=== PATIENT | female | born 1980 | race Caucasian/White ===

== ENCOUNTER 2016-04-20 21:54 | Emergency (ER) | payer MEDICARE, OTHER ==
[2016-04-20 22:19] VITALS: RESP 20
--- NOTE | 2016-04-20 22:30 | ED ---
General Adult HPI - General Chief complaint: Back Pain/Injury Stated complaint: Rib Injury Time Seen by Provider: 04/20/16 21:59 Source: patient, RN notes reviewed Mode of arrival: ambulatory Limitations: physical limitation - History of Present Illness Initial comments: Patient 35-year-old female who presents emergency room today with a field technical assistant, the chief complaint of abnormal appearance of the left side of the ribs. [employer] states that she noticed that during a shower earlier today she noticed that the left rib seem to be protruding farther out. States otherwise patient is at baseline. Patient nonverbal and history provided by field technical assistant at bedside. Denies any other symptoms. Denies any cough congestion. Denies any recent fevers. Denies any nausea vomiting. Review of Systems ROS Statement: Those systems with pertinent positive or pertinent negative responses have been documented in the HPI. ROS Other: All systems not noted in ROS Statement are negative. Past Medical History Additional Past Medical History / Comment(s): celebral palsy - mental retardation- unreposnsive- has feeding tube and trach tube Past Psychological History: No Psychological Hx Reported General Exam - General Exam Comments Initial Comments: General: The patient is in no distress, and does not appear acutely ill. Eye: Pupils are equal, round and reactive to light, extra-ocular movements are intact. No nystagmus. There is normal conjunctiva bilaterally. No signs of icterus. Ears, nose, mouth and throat: There are moist mucous membranes and no oral lesions. Neck: The neck is supple. Cardiovascular: There is a regular rate and rhythm. No murmur, rub or gallop is appreciated. Respiratory: Lungs are clear to auscultation, respirations are non-labored, breath sounds are equal. No wheezes, stridor, rales, or rhonchi. Gastrointestinal: Soft, non-distended, non-tender abdomen without masses or organomegaly noted. There is no rebound or guarding present. No CVA tenderness. Bowel sounds are unremarkable. Musculoskeletal: Normal ROM, no tenderness. Strength 5/5. Sensation intact. Pulses equal bilaterally 2+. Neurological: A&O x 3. CN II-XII intact, There are no obvious motor or sensory deficits. Coordination appears grossly intact. Speech is normal. Skin: Skin is warm and dry and no rashes or lesions are noted. Limitations: physical limitation Course Vital Signs 04/20/16 22:11 Temperature 97.8 F Pulse Rate 83 Respiratory 20 Rate Blood Pressure 114/64 O2 Sat by Pulse 98 Oximetry Medical Decision Making - Medical Decision Making Patient reexamined at this time has no signs acute distress. Vitals are stable. X-ray reviewed are unremarkable. There is no bruising or swelling locally to the area. There is no history of a injury or trauma to the area. Patient does have previous surgeries and no hip on the left side that was removed. Bony structures are somewhat irregular on x-ray but no evidence for anything acute. Results were discussed with the patient's field technical assistant. Patient shows no signs of distress. No signs of pain on palpation. Will be discharged home advised following up returning for any other concerns. Disposition Clinical Impression: No problem, feared complaint unfounded Disposition: HOME SELF-CARE Condition: Good Additional Instructions: Please follow the family doctor over the next 2 days. Please continue the emergency room for any other concerns or complications. Time of Disposition: 23:14
--- NOTE | 2016-04-20 23:08 | XR ---
EXAMINATION TYPE: XR chest 2V DATE OF EXAM: 04/20/2016 10:45 PM COMPARISON: 08/22/2009 HISTORY: Injury. Chest pain. TECHNIQUE: Frontal and lateral views of the chest are obtained. FINDINGS: There is a poor inspiration. Heart and mediastinum are normal. Tracheostomy tube is noted. There are posterior paraspinal rods stabilizing the thoracic and lumbar spine. There are no hilar ma sses. IMPRESSION: No active cardiopulmonary disease. Inspiration is improved compared to old exam.
[2016-04-21 00:32] VITALS: BP 114/72; PULSE 78; TEMP 98.2
== END 2016-04-21 00:42 | disposition home or self-care (01) ==
LOC: EC 21:54
DX: Z71.1 Person with feared health complaint in whom no diagnosis is made (principal); G80.9 Cerebral palsy, unspecified; F79 Unspecified intellectual disabilities; Z93.1 Gastrostomy status
CPT/HCPCS: 71020; 99283

== ENCOUNTER 2016-06-11 11:07 | Day surgery (SDC) | payer MEDICARE, OTHER ==
[2016-06-06 13:36] VITALS: BMI 18.8
[~2016-06-11 11:07] MED LIST: LIDOCAINE 1% 20 ML VIAL (10MG/ML) FOR IV START INTRADERMA PRN
[2016-06-11 13:04] VITALS: TEMP 98
[2016-06-11] MEDS: LACTATED RINGERS 1,000 ML IV SCH ×2 (13:14→13:16)
[2016-06-11] MEDS ORDERED: PROPOFOL 10 MG/ML 20 ML VIAL IV ONE (13:18)
[2016-06-11] MEDS ORDERED: IV FLUID CONTINUATION 1,000 ML IV ONE (13:59)
[2016-06-11 14:04] VITALS: RESP 18
--- NOTE | 2016-06-11 14:09 | P.PCN ---
Date of Procedure: 06/11/16 Procedure(s) Performed: Procedure: Esophagogastroduodenoscopy and replacement of gastrostomy feeding tube. Preoperative diagnosis: History of cerebral palsy with tracheostomy and gastrostomy feeding tube placement in the past for enteral nutritional support with feeding tube malfunction. Postoperative diagnosis: Replacement of the feeding tube was accomplished using the Bard button replacement gastrostomy device size 18-Guyanese and 1.7 cm length. Preparation and sedation: Was provided by anesthesia. Brief clinical history: The patient is a 36-year-old female with history of seizure disorder and cerebral palsy who has been requiring enteral nutritional support for several years. Her current gastrostomy feeding tube was last changed around 5 years ago. The patient also has a tracheostomy as well. The patient was referred for feeding tube malfunction to replace her existing tube. Procedure: With the patient in the supine position and after informed consent and the adequate sedation, I was able to deflate the balloon on the current gastrostomy tube and removed the existing tube intact. The balloon was filled with 7 mL of clear fluid and the size of the tube was 24-Guyanese. We were not able to secure the same feeding tube kind that she had, and instead I used the Bard button replacement gastrostomy device 18-Guyanese 1.7 cm length and I passed it using the obturator and generous lubrication into the existing tract. Because of the different than the Kind of tube and the length I proceeded to perform an EGD to ascertain that the smaller and perhaps shorter length tube is in the optimal position. I therefore proceeded to pass the Olympus-GIF 160 video upper endoscope through the cricopharyngeus down the esophagus and into the stomach. I passed it through the pylorus into the duodenum and confirmed the absence of any significant pathology. The feeding tube appeared in place and was abutting the inside wall of the stomach as expected. The patient tolerated the procedure well. Plan: I discussed in detail these findings with the caregiver and guardian. Will allow resuming the feeding using the new feeding tube and monitor closely for any leakage or infection. If there are any problems with with the function of the tube in the future we will consider replacing with a balloon replacement tube with different dimensions.
[2016-06-11 14:20] VITALS: BP 97/66; PULSE 60
== END 2016-06-11 14:46 | disposition home health service (06) ==
LOC: ORWHC2ENDO 11:07
DX: Z43.1 Encounter for attention to gastrostomy (principal); G80.8 Other cerebral palsy; G40.909 Epilepsy, unspecified, not intractable, without status epilepticus; F79 Unspecified intellectual disabilities; Z79.51 Long term (current) use of inhaled steroids; Z79.899 Other long term (current) drug therapy
CPT/HCPCS: 43246; J2704

== ENCOUNTER 2016-11-30 11:17 | Inpatient (IN) | payer MEDICARE, OTHER ==
[2016-11-30] MEDS ORDERED: IPRATROPIUM-ALBUTEROL 3 ML NEB INHALATION STA ×2 (12:01→16:29)
[2016-11-30] MEDS ORDERED: PIPERACILLIN-TAZOBACTAM 3.375 GM in DEXTROSE/WATER 1 50ML.BAG IVPB STA (12:01)
[2016-11-30] MEDS ORDERED: methylPREDNISolone SOD SUCCI 125 MG/2 ML VIAL IV STA (12:01)
[2016-11-30] MEDS ORDERED: SODIUM CHLORIDE 0.9% 1,000 ML IV STA (12:01)
--- NOTE | 2016-11-30 13:45 | ED ---
SOB HPI - General Chief Complaint: Shortness of Breath Stated Complaint: pneumonia Time Seen by Provider: 11/30/16 11:53 Source: EMS, Caregiver Mode of arrival: EMS Limitations: physical limitation - History of Present Illness Initial Comments: This 36-year-old debilitated white female presents with a complaint of some shortness of breath. She is non-communicative and therefore all history is obtained per her guardian. Her guardian relates that she normally receives feedings through her PEG tube over a period of time. They apparently just recently started giving her boluses of her feeding tube mixture. Today at approximately 10 AM she started coughing and having the feeding mixture leak out of her tracheostomy site. She seems to be having some slight decrease in her normal mentation and also has had some difficulty in breathing and increased cough. There has not been any known fever. Symptoms were relatively sudden in onset. This occurred while she was at her day program today. No other complaints or modifying factors. - Related Data Home Medications Medication Instructions Recorded Confirmed Albuterol Nebulized [Ventolin 2.5 mg INHALATION RT-QID 06/06/16 11/30/16 Nebulized] Baclofen [Lioresal] 20 mg PEG/G-TUBE TID 06/06/16 11/30/16 Diazepam 2 mg PEG/G-TUBE BID 06/06/16 11/30/16 Diazepam [Diastat] 20 mg RECTAL Q5M PRN 06/06/16 11/30/16 Montelukast Sodium [Singulair] 10 mg PEG/G-TUBE QAM 06/06/16 11/30/16 carBAMazepine [TEGretol Susp] 400 mg PEG/G-TUBE TID 06/06/16 11/30/16 levETIRAcetam 1,000 mg PEG/G-TUBE BID 06/06/16 11/30/16 Bisacodyl [Dulcolax] 10 mg RECTAL DAILY PRN 11/30/16 11/30/16 Budesonide [Pulmicort] 0.5 mg INHALATION RT-BID 11/30/16 11/30/16 Chlorhexidine Gluconate [Peridex] 1 applic MUCOUS MEM BID 11/30/16 11/30/16 Doxycycline Hyclate [Vibramycin] 100 mg PO BID 11/30/16 11/30/16 Fibersource Hn Liquid 1 can PEG/G-TUBE TID 11/30/16 11/30/16 Mometasone Furoate [Nasonex Nasal 1 spray EA NOSTRIL DAILY 11/30/16 11/30/16 [place]] Naproxen [Naprosyn] 375 mg PEG/G-TUBE DAILY 11/30/16 11/30/16 Nystatin 100,000 Unit/gm Powd 1 applic TOPICAL BID 11/30/16 11/30/16 [Mycostatin Powder] Polyethylene Glycol 3350 [Miralax] 17 gm PEG/G-TUBE DAILY PRN 11/30/16 11/30/16 Triamcinolone 0.1% Lotion [Kenalog 1 applic TOPICAL BID 11/30/16 11/30/16 0.1% Lotion] Allergies Allergy/AdvReac Type Severity Reaction Status Date / Time No Known Allergies Allergy Verified 11/30/16 11:48 Review of Systems ROS Statement: Those systems with pertinent positive or pertinent negative responses have been documented in the HPI. ROS Other: All systems not noted in ROS Statement are negative. Past Medical History Past Medical History: Asthma, Musculoskeletal Disorder, Seizure Disorder Additional Past Medical History / Comment(s): celebral palsy , mental retardation- non verbal, has feeding tube and trach tube, no recorded of last seizure at custodial. quadraplegic, non ambulatory in wheelchair, transfers with lift -no wt bearing. hx stool impactions, incontinent of urine and stool- wears depends History of Any Multi-Drug Resistant Organisms: MRSA Date of last positivie culture/infection: 05/25/16 MDRO Source:: Abdomen Past Surgical History: Orthopedic Surgery Additional Past Surgical History / Comment(s): EGD/ peg tube, Left hip bone removed, trachestomy Past Anesthesia/Blood Transfusion Reactions: No Reported Reaction Past Psychological History: Unable to Obtain Smoking Status: Never smoker - Past Family History Mother Family Medical History: Unable to Obtain Additional Family Medical History / Comment(s): no hx at custodial General Exam - General Exam Comments Initial Comments: GENERAL: The patient is well nourished and well hydrated. VITAL SIGNS: Heart rate, blood pressure, respiratory rate reviewed as recorded in nurse's notes. EYES: Pupils are round and reactive. Extraocular movements are intact. No conjunctival / lid redness or swelling. ENT: No external evidence of injury, swelling, or ecchymosis. Mucous membranes are moist. NECK: Nontender. No swelling or evidence of injury. No subcutaneous emphysema. The patient has a tracheostomy in place. HEART: Regular rate and rhythm. Good peripheral pulses. LUNGS/CHEST: Rhonchi and wheezing is noted to the bilateral lungs. No ecchymosis, subcutaneous emphysema, or tenderness. ABDOMEN: Abdomen soft without tenderness. No palpable masses or organomegaly. No peritoneal signs. No abdominal wall swelling or ecchymosis. A PEG tube is in place. EXTREMITIES: Contractures noted to extremities. NEUROLOGIC: The patient is chronically debilitated. She is alert at times but sleeping at times as well. SKIN: No abrasions or ecchymosis is noted. No induration or masses noted. PSYCHIATRIC: Patient is noncommunicative. Limitations: physical limitation Course Vital Signs 11/30/16 11/30/16 11/30/16 11:20 11:39 12:15 Temperature 98.7 F Pulse Rate 79 80 Respiratory 18 20 Rate Blood Pressure 99/62 O2 Sat by Pulse 93 L Oximetry 11/30/16 12:42 Temperature Pulse Rate 84 Respiratory Rate Blood Pressure O2 Sat by Pulse Oximetry Medical Decision Making - Medical Decision Making The patient is seen and examined. All diagnostics were reviewed. The nursing staff was unable to obtain any IV access after many attempts. The patient apparently was at [facility] 2 weeks ago and the caregiver relates that they were unable to obtain IV access. They also were unable to get a central line placed. A consult is placed to interventional radiology for PICC line placement. The chest x-ray does show evidence of pneumonia bilaterally. Is felt as though this is likely an aspiration pneumonia. She will be admitted to the hospital for further treatment. Old records are reviewed. Laboratory was reviewed and overall is fairly unremarkable. Delay in receiving antibiotics has occurred due to lack of IV access. Case was discussed with Dr. Zepeda and he is agreeable to admission. - Lab Data Result diagrams: 11/30/16 14:00 11/30/16 14:00 Lab Results 11/30/16 11/30/16 11/30/16 Range/Units 14:00 14:00 14:00 WBC 8.3 (3.8-10.6) k/uL RBC 4.33 (3.80-5.40) m/uL Hgb 12.2 (11.4-16.0) gm/dL Hct 37.2 (34.0-46.0) % MCV 85.8 (80.0-100.0) fL MCH 28.1 (25.0-35.0) pg MCHC 32.7 (31.0-37.0) g/dL RDW 16.3 H (11.5-15.5) % Plt Count 247 (150-450) k/uL Neutrophils % 84 % Lymphocytes % 9 % Monocytes % 5 % Eosinophils % 1 % Basophils % 0 % Neutrophils # 6.9 (1.3-7.7) k/uL Lymphocytes # 0.7 L (1.0-4.8) k/uL Monocytes # 0.4 (0-1.0) k/uL Eosinophils # 0.1 (0-0.7) k/uL Basophils # 0.0 (0-0.2) k/uL Anisocytosis Slight PT 10.5 (9.0-12.0) sec INR 1.0 (<1.2) APTT 25.1 (22.0-30.0) sec Sodium 132 L (137-145) mmol/L Potassium 3.8 (3.5-5.1) mmol/L Chloride 98 (98-107) mmol/L Carbon Dioxide 22 (22-30) mmol/L Anion Gap 12 mmol/L BUN 7 (7-17) mg/dL Creatinine 0.26 L (0.52-1.04) mg/dL Est GFR (MDRD) Af Amer >60 (>60 ml/min/1.73 sqM) Est GFR (MDRD) Non-Af >60 (>60 ml/min/1.73 sqM) Glucose 106 H (74-99) mg/dL Calcium 9.1 (8.4-10.2) mg/dL Magnesium 2.0 (1.6-2.3) mg/dL Total Bilirubin 0.3 (0.2-1.3) mg/dL AST 22 (14-36) U/L ALT 50 (9-52) U/L Alkaline Phosphatase 100 (38-126) U/L Total Creatine Kinase (30-135) U/L Total Protein 7.5 (6.3-8.2) g/dL Albumin 4.0 (3.5-5.0) g/dL 11/30/16 Range/Units 14:00 WBC (3.8-10.6) k/uL RBC (3.80-5.40) m/uL Hgb (11.4-16.0) gm/dL Hct (34.0-46.0) % MCV (80.0-100.0) fL MCH (25.0-35.0) pg MCHC (31.0-37.0) g/dL RDW (11.5-15.5) % Plt Count (150-450) k/uL Neutrophils % % Lymphocytes % % Monocytes % % Eosinophils % % Basophils % % Neutrophils # (1.3-7.7) k/uL Lymphocytes # (1.0-4.8) k/uL Monocytes # (0-1.0) k/uL Eosinophils # (0-0.7) k/uL Basophils # (0-0.2) k/uL Anisocytosis PT (9.0-12.0) sec INR (<1.2) APTT (22.0-30.0) sec Sodium (137-145) mmol/L Potassium (3.5-5.1) mmol/L Chloride (98-107) mmol/L Carbon Dioxide (22-30) mmol/L Anion Gap mmol/L BUN (7-17) mg/dL Creatinine (0.52-1.04) mg/dL Est GFR (MDRD) Af Amer (>60 ml/min/1.73 sqM) Est GFR (MDRD) Non-Af (>60 ml/min/1.73 sqM) Glucose (74-99) mg/dL Calcium (8.4-10.2) mg/dL Magnesium (1.6-2.3) mg/dL Total Bilirubin (0.2-1.3) mg/dL AST (14-36) U/L ALT (9-52) U/L Alkaline Phosphatase (38-126) U/L Total Creatine Kinase 33 (30-135) U/L Total Protein (6.3-8.2) g/dL Albumin (3.5-5.0) g/dL Disposition Clinical Impression: Aspiration pneumonia, Debilitated patient, Hypoxia, Bilateral pneumonia Disposition: ADMITTED IP TO THIS HOSP Condition: Fair Referrals: Avery Casarez MD [Primary Care Provider] - 1-2 days Time of Disposition: 14:23 Decision Date: 11/30/16 Decision Time: 14:23
[2016-11-30 14:22] LABS: Anisocytosis Slight; Basophils % (A) 0 %; CH 29.4; CHCM 34.4; Eosinophils # (A) 0.1 k/uL (0-0.7); Eosinophils % (A) 1 %; HCT 37.2 % (34.0-46.0); HDW 2.47; HGB 12.2 gm/dL (11.4-16.0); Luc % (Auto) 1; Lymphocytes # (A) 0.7 k/uL (1.0-4.8); Lymphocytes % (A) 9 %; MCH 28.1 pg (25.0-35.0); MCHC 32.7 g/dL (31.0-37.0); MCV 85.8 fL (80.0-100.0); Mean Platelet Volume 9.8; Monocytes # (A) 0.4 k/uL (0-1.0); Monocytes % (A) 5 %; Neutrophils # (A) 6.9 k/uL (1.3-7.7); Neutrophils % (A) 84 %; RBC 4.33 m/uL (3.80-5.40); RDW 16.3 % (11.5-15.5); WBC 8.3 k/uL (3.8-10.6); WBC (Perox) 8.98
--- NOTE | 2016-11-30 14:26 | XR ---
EXAMINATION TYPE: XR chest 1V portable DATE OF EXAM: 11/30/2016 COMPARISON: 04/20/2016 HISTORY: Chest pain TECHNIQUE: Single frontal view of the chest is obtained. FINDINGS: The study is limited by patient positioning and limited degree of inspiration. Increased basilar husam ings may reflect developing pneumonia. Pulmonary vasculature is mildly engorged resulting overtly con gested. The heart is not enlarged. Thoracolumbar Pandey rods are in place. Stable gaseous distent ion of small and large bowel. Tracheostomy tube is in place. IMPRESSION: 1. Basilar infiltrates are difficult to exclude. Correlate clinically.
[2016-11-30 14:32] LABS: Partial Thromboplastin Time 25.1 sec (22.0-30.0); Prothrombin Time 10.5 sec (9.0-12.0)
[2016-11-30 14:45] LABS: ALT 50 U/L (9-52); AST 22 U/L (14-36); Alkaline Phosphatase 100 U/L (38-126); Anion Gap 12 mmol/L; Blood Urea Nitrogen 7 mg/dL (7-17); Calcium 9.1 mg/dL (8.4-10.2); Carbon Dioxide 22 mmol/L (22-30); Chloride 98 mmol/L (98-107); Glucose 106 mg/dL (74-99); Non-African American GFR(MDRD) >60 (>60 ml/min/1.73 sqM); Potassium 3.8 mmol/L (3.5-5.1); Sodium 132 mmol/L (137-145); Total Bilirubin 0.3 mg/dL (0.2-1.3); Total Protein 7.5 g/dL (6.3-8.2)
[2016-11-30 14:46] LABS: Creatine Kinase 33 U/L (30-135)
[2016-11-30] MEDS ORDERED: PNEUMONIA PROTOCOL UTILIZED 1 EACH MISC PO PRN (14:51)
[2016-11-30] MEDS ORDERED: BISACODYL 10 MG SUPP RECTAL PRN (14:55)
[2016-11-30] MEDS ORDERED: POLYETHYLENE GLYCOL 3350 17 GM POWD.PACK PO PRN (14:55)
[2016-11-30] MEDS ORDERED: DIAZEPAM 20 MG RECTAL PRN (14:55)
[2016-11-30 14:59] LABS: Creatine Kinase MB 0.5 ng/mL (0.0-2.4); Troponin I <0.012 ng/mL (0.000-0.034)
[2016-11-30] MEDS ORDERED: FIBERSOURCE HN PEG/G-TUBE SCH (16:00)
[2016-11-30] MEDS ORDERED: AMPICILLIN-SULBACTAM 3 GM VIAL IM STA (16:10)
[2016-11-30] MEDS ORDERED: LORazepam 2 MG/ML SYRINGE IM PRN (17:37)
[2016-11-30] MEDS: carBAMazepine 200 MG TAB PEG/G-TUBE SCH ×2 (18:14→21:08)
[2016-11-30] MEDS: methylPREDNISolone SOD SUCCI 125 MG/2 ML VIAL IM SCH ×2 (18:14→23:57)
[2016-11-30] MEDS: BACLOFEN 10 MG TAB PEG/G-TUBE SCH ×2 (18:14→21:08)
[2016-11-30] MEDS: IPRATROPIUM-ALBUTEROL 3 ML NEB INHALATION PRN (19:54)
[2016-11-30] MEDS: BUDESONIDE 0.5 MG/2 ML NEBU INHALATION SCH (19:54)
[2016-11-30] MEDS: DIAZEPAM 2 MG TAB PEG/G-TUBE SCH (21:07)
[2016-11-30] MEDS: levETIRAcetam 500 MG TAB PEG/G-TUBE SCH (21:08)
[2016-11-30] MEDS: TRIAMCINOLONE 0.1% CREAM 80 GM TUBE TOPICAL SCH (21:08)
[2016-11-30] MEDS: NYSTATIN 100,000 UNIT/GM POWD 15 GM TOPICAL SCH (21:09)
[2016-11-30] MEDS: CHLORHEXIDINE GLUCONATE 15 ML CUP MUCOUS MEM SCH (21:09)
[2016-11-30] MEDS: DOXYCYCLINE 50 MG CAP PO SCH (21:11)
[2016-11-30] MEDS: AMPICILLIN-SULBACTAM 3 GM VIAL IM SCH (23:54)
[2016-12-01] MEDS ORDERED: PIPERACILLIN-TAZOBACTAM 3.375 GM in DEXTROSE/WATER 1 50ML.BAG IVPB SCH
[2016-12-01] MEDS: methylPREDNISolone SOD SUCCI 125 MG/2 ML VIAL IM SCH ×3 (05:14→17:26)
[2016-12-01] MEDS: IPRATROPIUM-ALBUTEROL 3 ML NEB INHALATION PRN (09:12)
[2016-12-01] MEDS: BUDESONIDE 0.5 MG/2 ML NEBU INHALATION SCH ×2 (09:12→20:12)
--- NOTE | 2016-12-01 09:40 | IR ---
Failed PICC line placement HISTORY: Needs long-term intravenous access for therapy. Patient could not be positioned for PICC line placement due to contractures. Patient is not a PICC li ne candidate in the upper extremities.
[2016-12-01] MEDS ORDERED: LIDOCAINE 2% INJ 20 MG/ML SQ ONE ×4 (10:17→10:43)
[2016-12-01] MEDS ORDERED: IODIXANOL 320 MG/ML 100 ML IV ONE (11:00)
[2016-12-01] MEDS: IPRATROPIUM-ALBUTEROL 3 ML NEB INHALATION SCH ×2 (13:14→20:12)
--- NOTE | 2016-12-01 13:15 | HP ---
HISTORY AND PHYSICAL DATE OF ADMISSION: 11/30/2016 PRESENTING COMPLAINT: Short of breath. HISTORY OF PRESENTING COMPLAINT: This patient was seen by me yesterday on 11/30/2016 in the ER. Patient's caregiver was at the bedside. Patient is followed by visiting physician, Dr. Casarez. The patient lives at [facility] and the patient's guardian is Deana Sherwood. The patient has cerebral palsy with quadriplegia and contracted limbs. Patient has got a PEG tube for feeding and tracheostomy. Patient's doubly incontinent and wears diapers. Latoya, the caregiver, provided all the history. The patient has been having continuous feeding for a long time. Two days ago started off to try a bolus feeding 3 times a day with a syringe. Subsequent to that, patient started coughing and having increasing secretions through the tracheostomy. The patient is felt to have aspirated. Patient is awake but not able to give any history. Does not communicate really. Hence patient was brought into the ER. Difficulty in IV access was being had so when did call me initially, we had gotten hold of interventional radiology, they were no successful for that. In the mean time, intramuscular Unasyn was given. Dr. Lane Miller from vascular surgery was then consulted for access. Patient is not in any distress otherwise. REVIEW OF SYSTEMS: Cannot get any from the patient as the patient is nonverbal. PAST MEDICAL HISTORY: Cerebral palsy, quadriplegia, doubly incontinent, seizures, some asthma, tracheostomy, PEG tube feeding. PAST SURGICAL HISTORY: Left hip bone removed, tracheostomy and PEG tube. SOCIAL HISTORY: The patient did not smoke. No alcohol. Lives at [facility]. Patient's guardian is Deana Sherwood. FAMILY HISTORY: Patient cannot tell. HOME MEDICATIONS: 1. Dulcolax 10 mg rectal daily p.r.n. 2. Fibersource liquid 1 can through PEG tube t.i.d. 3. Peridex mucous membrane b.i.d. 4. Vibramycin 100 mg p.o. b.i.d. 5. Kenalog 0.1% topical b.i.d. 6. Naproxen 375 mg through PEG tube daily. 7. Mycostatin topical b.i.d. 8. MiraLAX 17 grams daily p.r.n. 9. Singulair 10 mg PEG tube daily. 10.Nasonex 1 spray each nostril daily. 11.Keppra 1000 mg through PEG tube b.i.d. 12.Tegretol 400 mg through PEG/G-tube t.i.d. 13.Diazepam 20 mg rectal q.5 hours p.r.n. 14.Valium 2 mg PEG tube b.i.d. 15.Pulmicort 0.5 mg b.i.d. nebulizer. 16.Baclofen 20 mg through PEG tube t.i.d. 17.Ventolin 2.5 nebulizer q.i.d. ALLERGIES: None. ON EXAMINATION: VITAL SIGNS ON PRESENTATION: Temperature 98.7, pulse 79, respiratory rate 18, blood pressure 99/62, pulse ox 93% room air. GENERAL APPEARANCE: Short, awake, lying in bed, limbs contracted. EYES: Pupils equal. Conjunctivae normal. HENT: Face is a bit flushed. Oral cavity some secretions are noted. NECK: Short. Tracheostomy in place, bubbling with secretions. RESPIRATORY: Effort increased. LUNGS: Some scattered crackles. CARDIOVASCULAR: First and second sounds normal. No edema. ABDOMEN: Soft, nontender. PEG tube in place. LYMPHATIC: No lymph node palpable in the neck and axillae. PSYCHIATRY: Unable to assess, patient nonverbal. NEUROLOGICAL: Patient's limbs are flexed and contracted. Sensations grossly preserved. INVESTIGATION: White count 8.3, hemoglobin 12.2. Sodium 132 potassium 3.8. Troponin less than 0.012. Chest x-ray portable shows infiltrates. ASSESSMENT: 1. Aspiration pneumonia likely from the feeding product likely these are chemical pneumonitis, often times not infective, but we give antibiotic coverage. 2. Hyponatremia, will check serum osmolality. 3. Chronic PEG tube feeding. 4. Chronic tracheostomy. 5. Intermittent asthma. 6. Seizure disorder. 7. Cerebral palsy causing quadriplegia. 8. Double incontinent. PLAN: Tube feeding was temporally held. Will start patient's medications through the PEG tube. Dr. Miller was consulted for vascular access. Aspiration precautions are to be maintained. Care was discussed with the caregiver at the bedside. MMODL / IJN: [id number] /
--- NOTE | 2016-12-01 13:45 | P.CNPUL ---
History of Present Illness Consult date: 12/01/16 Requesting physician: Arcadio Zepeda Reason for consult: pneumonia Chief complaint: shortness of breath History of present illness: This 36-year-old debilitated white female presents with a complaint of some shortness of breath. She is non-communicative and therefore all history is obtained per her guardian. Her guardian relates that she normally receives feedings through her PEG tube over a period of time. They apparently just recently started giving her boluses of her feeding tube mixture. Today at approximately 10 AM she started coughing and having the feeding mixture leak out of her tracheostomy site. She seems to be having some slight decrease in her normal mentation and also has had some difficulty in breathing and increased cough. There has not been any known fever. Symptoms were relatively sudden in onset. This occurred while she was at her day program today. No other complaints or modifying factors. Patient was also at [facility] 2 weeks ago and she was not able to get IV access or a central line placement. PICC was attempted in ER by interventional radiology and was not successful. Vascular Surgery was consulted for access. Upon examination the patient is on 28% FiO2 via trach collar. Review of Systems ROS unobtainable: due to mental status Past Medical History Past Medical History: Asthma, Musculoskeletal Disorder, Seizure Disorder Additional Past Medical History / Comment(s): celebral palsy , mental retardation- non verbal, has feeding tube and trach tube, no recorded of last seizure at residential. quadraplegic, non ambulatory in wheelchair, transfers with lift -no wt bearing. hx stool impactions, incontinent of urine and stool- wears depends History of Any Multi-Drug Resistant Organisms: MRSA Date of last positivie culture/infection: 05/25/16 MDRO Source:: Abdomen Past Surgical History: Orthopedic Surgery Additional Past Surgical History / Comment(s): EGD/ peg tube, Left hip bone removed, trachestomy Past Anesthesia/Blood Transfusion Reactions: No Reported Reaction Past Psychological History: Unable to Obtain Smoking Status: Never smoker Past Alcohol Use History: None Reported Past Drug Use History: None Reported - Past Family History Mother Family Medical History: Unable to Obtain Additional Family Medical History / Comment(s): no hx at residential Medications and Allergies Home Medications Medication Instructions Recorded Confirmed Type Albuterol Nebulized [Ventolin 2.5 mg INHALATION RT-QID 06/06/16 11/30/16 History Nebulized] Baclofen [Lioresal] 20 mg PEG/G-TUBE TID 06/06/16 11/30/16 History Diazepam 2 mg PEG/G-TUBE BID 06/06/16 11/30/16 History Diazepam [Diastat] 20 mg RECTAL Q5M PRN 06/06/16 11/30/16 History Montelukast Sodium [Singulair] 10 mg PEG/G-TUBE QAM 06/06/16 11/30/16 History carBAMazepine [TEGretol Susp] 400 mg PEG/G-TUBE TID 06/06/16 11/30/16 History levETIRAcetam 1,000 mg PEG/G-TUBE BID 06/06/16 11/30/16 History Bisacodyl [Dulcolax] 10 mg RECTAL DAILY PRN 11/30/16 11/30/16 History Budesonide [Pulmicort] 0.5 mg INHALATION RT-BID 11/30/16 11/30/16 History Chlorhexidine Gluconate [Peridex] 1 applic MUCOUS MEM BID 11/30/16 11/30/16 History Doxycycline Hyclate [Vibramycin] 100 mg PO BID 11/30/16 11/30/16 History Fibersource Hn Liquid 1 can PEG/G-TUBE TID 11/30/16 11/30/16 History Mometasone Furoate [Nasonex Nasal 1 spray EA NOSTRIL DAILY 11/30/16 11/30/16 History [place]] Naproxen [Naprosyn] 375 mg PEG/G-TUBE DAILY 11/30/16 11/30/16 History Nystatin 100,000 Unit/gm Powd 1 applic TOPICAL BID 11/30/16 11/30/16 History [Mycostatin Powder] Polyethylene Glycol 3350 [Miralax] 17 gm PEG/G-TUBE DAILY PRN 11/30/16 11/30/16 History Triamcinolone 0.1% Lotion [Kenalog 1 applic TOPICAL BID 11/30/16 11/30/16 History 0.1% Lotion] Allergies Allergy/AdvReac Type Severity Reaction Status Date / Time No Known Allergies Allergy Verified 11/30/16 11:48 Physical Exam Vitals: Vital Signs Temp Pulse Pulse Resp BP BP BP 12/01/16 07:00 99.2 F 112 H 14 113/60 12/01/16 00:00 18 11/30/16 23:39 99.3 F 11/30/16 23:00 100.1 F H 98 18 104/63 11/30/16 20:17 80 11/30/16 20:01 76 11/30/16 18:21 98.0 F 89 18 164/87 11/30/16 17:43 88 11/30/16 17:28 75 11/30/16 17:15 98.0 F 83 20 143/86 11/30/16 16:36 11/30/16 12:42 84 11/30/16 12:15 80 11/30/16 11:39 20 11/30/16 11:20 98.7 F 79 18 99/62 Pulse Ox 12/01/16 07:00 87 L 12/01/16 00:00 11/30/16 23:39 11/30/16 23:00 93 L 11/30/16 20:17 11/30/16 20:01 11/30/16 18:21 96 11/30/16 17:43 11/30/16 17:28 11/30/16 17:15 96 11/30/16 16:36 95 11/30/16 12:42 11/30/16 12:15 11/30/16 11:39 11/30/16 11:20 93 L Intake and Output 11/30/16 12/01/16 12/01/16 22:59 06:59 14:59 Intake Total 30 0 Balance 30 0 Intake: Oral 0 Tube Feeding 30 Other: Voiding Method Incontinent Incontinent # Voids 2 GENERAL: The patient is well nourished and well hydrated. EYES: Pupils are round and reactive. Extraocular movements are intact. No conjunctival / lid redness or swelling. ENT: No external evidence of injury, swelling, or ecchymosis. Mucous membranes are moist. NECK: Nontender. No swelling or evidence of injury. No subcutaneous emphysema. The patient has a tracheostomy in place. HEART: Regular rate and rhythm. Good peripheral pulses. LUNGS/CHEST: Rhonchi and wheezing is noted to the bilateral lungs. No ecchymosis, subcutaneous emphysema, or tenderness. ABDOMEN: Abdomen soft without tenderness. No palpable masses or organomegaly. No peritoneal signs. No abdominal wall swelling or ecchymosis. A PEG tube is in place. EXTREMITIES: Contractures noted to extremities. NEUROLOGIC: The patient is chronically debilitated. She is alert at times but sleeping at times as well. SKIN: No abrasions or ecchymosis is noted. No induration or masses noted. PSYCHIATRIC: Patient is noncommunicative. Results - Laboratory Findings CBC and BMP: 11/30/16 14:00 11/30/16 14:00 PT/INR, D-dimer PT 10.5 sec (9.0-12.0) 11/30/16 14:00 INR 1.0 (<1.2) 11/30/16 14:00 Abnormal lab findings: Abnormal Labs 11/30/16 11/30/16 14:00 14:00 RDW 16.3 H Lymphocytes # 0.7 L Sodium 132 L Creatinine 0.26 L Glucose 106 H - Diagnostic Findings Chest x-ray: report reviewed, image reviewed Assessment and Plan Plan: Assessment Bilateral Pneumonia, suspect aspiration, can not rule out bacterial Acute on chronic hypoxic respiratory failure Medical debility Hyponatremia Cerebral Palsey Chronic Peg/trach Chronic persistent asthma Quadriplegia Seizure disorder Plan Medications have been reviewed and will be continued as ordered. We will schedule breathing Duo-neb. Vascular for IV access. Continue with pulmonary hygiene, coughing and deep breathing exercises, and supportive care. Supplemental oxygen to maintain oxygen saturations of 92% or better. Continue nebulizer treatments. GI and DVT prophylaxis. We will continue to monitor labs/ results and adjust treatment as necessary. Further recommendations pending. I performed an examination of the patient and discussed their management with the nurse practitioner. I have reviewed the nurse practitioner's note and agree with the documented findings and plan of care.
[2016-12-01] MEDS: AMPICILLIN-SULBACTAM 3 GM VIAL IM SCH (14:18)
[2016-12-01] MEDS: BACLOFEN 10 MG TAB PEG/G-TUBE SCH ×3 (14:18→22:06)
[2016-12-01] MEDS: carBAMazepine 200 MG TAB PEG/G-TUBE SCH ×3 (14:19→22:05)
[2016-12-01] MEDS: CHLORHEXIDINE GLUCONATE 15 ML CUP MUCOUS MEM SCH ×2 (14:33→20:44)
[2016-12-01] MEDS: DOXYCYCLINE 50 MG CAP PO SCH ×2 (14:33→20:44)
[2016-12-01] MEDS: levETIRAcetam 500 MG TAB PEG/G-TUBE SCH ×2 (14:33→20:44)
[2016-12-01] MEDS: ENOXAPARIN 40 MG/0.4 ML SYRINGE SQ SCH (14:33)
[2016-12-01] MEDS: FLUTICASONE 50MCG/SPRAY NASAL 16GM EA NOSTRIL SCH (14:34)
[2016-12-01] MEDS: MONTELUKAST 10 MG TAB PEG/G-TUBE SCH (14:34)
[2016-12-01] MEDS: NAPROXEN 250 MG TAB PEG/G-TUBE SCH (14:35)
[2016-12-01] MEDS: NYSTATIN 100,000 UNIT/GM POWD 15 GM TOPICAL SCH ×2 (14:39→20:46)
[2016-12-01] MEDS: TRIAMCINOLONE 0.1% CREAM 80 GM TUBE TOPICAL SCH ×2 (14:39→20:46)
[2016-12-01] MEDS: DIAZEPAM 2 MG TAB PEG/G-TUBE SCH ×2 (14:44→20:43)
--- NOTE | 2016-12-01 15:04 | P.PN ---
Progress Note - Text DATE OF SERVICE: 12/01/2016 PRESENTING COMPLAINT: Short of breath HISTORY OF PRESENT ILLNESS: 36-year-old female with cerebral palsy with quadriplegia contracted limbs, PEG tube and tracheostomy. Method of to feeding had recently been changed from continuous feeds to bolus feedings, this occurred 2 days ago patient developed increasing secretions with concerns for aspiration. Admitted for the same. Difficulty obtaining IV access and Dr. Miller from vascular surgery was consulted. INTERVAL HISTORY: 12/01/2016: Patient resting quietly in the bed eyes open, noncommunicative. Return from OR status post Rebolledo placement. Tube feeding to be initiated at 10 mL an hour to ensure the patient can tolerate. Goal per dietitian 30 mL's an hour. Tracheostomy has less secretions today. REVIEW OF SYSTEMS: Patient noncommunicative unable to obtain. CURRENT MEDICATIONS Baclofen, 20 mg per PEG tube 3 times a day, Tegretol 400 mg 3 times a day per PEG tube, Valium 2 mg twice a day per PEG tube, Vibramycin 100 mg by mouth twice a day, Lovenox 40 mg subcu daily, Keppra thousand milligrams twice a day per PEG tube, Ativan 1 mg IM every 6 hours when necessary for seizures Solu- Medrol 60 mg IM every 6 hours, Naprosyn 375 mg daily per PEG tube. PHYSICAL EXAM VITAL SIGNS: Temperature 98.7, pulse 70, respiratory rate 15, blood pressure 126/66, oxygen saturation 91% on trach collar. GENERAL APPEARANCE: Lying in bed, eyes open appears comfortable. EYES: Pupils equal. Conjunctiva normal. NECK: JVD unable to assess. Tracheostomy, mild secretions noted . RESPIRATORY: Respiratory effort increased. Lungs scattered crackles to auscultation. CARDIOVASCULAR: First and second sounds normal. No edema. ABDOMEN: Soft. No tenderness. PEG tube in place. PSYCHIATRY: Unable to assess patient nonverbal. NEUROLOGICAL: Bilateral arms and legs flexed and contracted. INVESTIGATIONS: None new ASSESSMENT: -Aspiration pneumonia likely from feeding product likely these are chemical pneumonitis, oftentimes not infective, but we give antibiotic coverage. -Hyponatremia, we'll check serum osmolality. -Chronic PEG tube feeding. -Chronic tracheostomy. -Intermittent asthma. -Seizure disorder. -Cerebral palsy causing quadriplegia. -Double incontinent PLAN: Tube feeding will be initiated at 10 mL an hour up to a goal of 30 mL per hour per dietitian. Continue aspiration precautions. Continue medication and treatment plan. We'll continue to monitor closely CHERRY PITTER statement: Patient was seen and examined by nurse practitioner Anitha Pollock and all elements of the case discussed with attending Dr. Zepeda
--- NOTE | 2016-12-01 15:15 | CONS ---
CONSULTATION This is a 36-year-old female. She came to the emergency room complaining of shortness of breath. The patient had a feeding tube placed and there is a concern about probably she aspirated and has been admitted. The patient has no venous access. I was consulted for placement of the venous access. This patient was seen by interventional radiologist for placement of PICC line, but they could not get the access. Patient has a tracheostomy. The patient has some difficulty in breathing and increase in cough. PAST HISTORY: History of asthma, musculoskeletal disorder, history of seizure disorder. PHYSICAL EXAMINATION: The patient was seen in her room. Her neck is supple. Patient has a tracheostomy tube. LUNGS: Patient has a normal sinus rhythm. Rhonchi and wheezing noted bilaterally. EXTREMITIES: Patient has contractures noted to the extremities. NEUROLOGICALLY: Patient is chronically debilitated. PLAN: Patient will be taken to the cathead operator for getting a venous access, possible Rebolledo. Risks and complications, bleeding, infection, thrombosis, respiratory arrest has been discussed. MMODL / IJN: [id number] /
--- NOTE | 2016-12-01 15:49 | IR ---
Fluoroscopy HISTORY: Needs long-term intravenous access for antibiotics 7.4 minutes fluoroscopy time supplied to the referring clinician. 162 intraoperative C-arm images do cument the procedure. See dictated report from vascular surgery.
[2016-12-01] MEDS: AMPICILLIN-SULBACTAM 3 GM in SODIUM CHLORIDE 0.9% 100 ML IVPB SCH ×2 (15:53→23:34)
[2016-12-01] MEDS: methylPREDNISolone SOD SUCCI 125 MG/2 ML VIAL IV SCH (23:34)
[2016-12-02] MEDS: methylPREDNISolone SOD SUCCI 125 MG/2 ML VIAL IV SCH ×3 (05:55→17:01)
[2016-12-02 07:33] LABS: Basophils % (A) 0 %; CH 27.8; CHCM 32.5; Eosinophils % (A) 0 %; HCT 34.6 % (34.0-46.0); HDW 2.51; HGB 11.4 gm/dL (11.4-16.0); Luc # (Auto) 0.11; Luc % (Auto) 3; Lymphocytes # (A) 0.9 k/uL (1.0-4.8); Lymphocytes % (A) 23 %; MCH 28.4 pg (25.0-35.0); MCV 86.1 fL (80.0-100.0); Mean Platelet Volume 9.1; Monocytes # (A) 0.4 k/uL (0-1.0); Monocytes % (A) 9 %; Neutrophils # (A) 2.6 k/uL (1.3-7.7); Neutrophils % (A) 65 %; RBC 4.02 m/uL (3.80-5.40); RDW 15.3 % (11.5-15.5); WBC (Perox) 4.31
[2016-12-02 07:43] LABS: Anion Gap 8 mmol/L; Blood Urea Nitrogen 16 mg/dL (7-17); Calcium 9.3 mg/dL (8.4-10.2); Carbon Dioxide 26 mmol/L (22-30); Chloride 107 mmol/L (98-107); Glucose 123 mg/dL (74-99); Non-African American GFR(MDRD) >60 (>60 ml/min/1.73 sqM); Potassium 3.6 mmol/L (3.5-5.1); Sodium 141 mmol/L (137-145)
[2016-12-02] MEDS: CHLORHEXIDINE GLUCONATE 15 ML CUP MUCOUS MEM SCH ×2 (07:44→22:19)
[2016-12-02] MEDS: DOXYCYCLINE 50 MG CAP PO SCH ×2 (07:44→22:20)
[2016-12-02] MEDS: ENOXAPARIN 40 MG/0.4 ML SYRINGE SQ SCH (07:44)
[2016-12-02] MEDS: FLUTICASONE 50MCG/SPRAY NASAL 16GM EA NOSTRIL SCH (07:44)
[2016-12-02] MEDS: MONTELUKAST 10 MG TAB PEG/G-TUBE SCH (07:45)
[2016-12-02] MEDS: levETIRAcetam 500 MG TAB PEG/G-TUBE SCH ×2 (07:45→22:19)
[2016-12-02] MEDS: NAPROXEN 250 MG TAB PEG/G-TUBE SCH (07:45)
[2016-12-02] MEDS: BACLOFEN 10 MG TAB PEG/G-TUBE SCH ×3 (07:45→22:18)
[2016-12-02 07:46] LABS: Glucose,Whole Blood 113 mg/dL (75-99)
[2016-12-02] MEDS: carBAMazepine 200 MG TAB PEG/G-TUBE SCH ×3 (07:46→22:19)
[2016-12-02] MEDS: AMPICILLIN-SULBACTAM 3 GM in SODIUM CHLORIDE 0.9% 100 ML IVPB SCH ×2 (07:47→17:01)
[2016-12-02] MEDS: NYSTATIN 100,000 UNIT/GM POWD 15 GM TOPICAL SCH ×2 (07:47→22:20)
[2016-12-02] MEDS: TRIAMCINOLONE 0.1% CREAM 80 GM TUBE TOPICAL SCH ×2 (07:47→22:21)
[2016-12-02] MEDS: DIAZEPAM 2 MG TAB PEG/G-TUBE SCH ×2 (07:48→22:24)
[2016-12-02] MEDS: IPRATROPIUM-ALBUTEROL 3 ML NEB INHALATION SCH ×3 (08:05→20:56)
[2016-12-02] MEDS: BUDESONIDE 0.5 MG/2 ML NEBU INHALATION SCH ×2 (08:05→20:56)
--- NOTE | 2016-12-02 10:31 | XR ---
EXAMINATION TYPE: XR chest 1V portable DATE OF EXAM: 12/02/2016 HISTORY: follow up. REFERENCE: Previous study dated 11/30/2016. FINDINGS: There has been aissatou fixation of the thoracolumbar spine. There is been internal fixation of the right humerus. There is deformity of the chest wall. There is a tracheostomy tube in place. Its tip overlies the tracheal air column in this single fronta l projection. The lungs are clear. Pleural space are clear. Heart size is within normal limits. IMPRESSION: NO ACUTE INTRATHORACIC ABNORMALITY.
[2016-12-02 11:55] LABS: Glucose,Whole Blood 117 mg/dL (75-99)
--- NOTE | 2016-12-02 16:32 | P.PN ---
Progress Note - Text DATE OF SERVICE: 12/02/2016 PRESENTING COMPLAINT: Short of breath HISTORY OF PRESENT ILLNESS: 36-year-old female with cerebral palsy with quadriplegia contracted limbs, PEG tube and tracheostomy. Method of to feeding had recently been changed from continuous feeds to bolus feedings, this occurred 2 days ago patient developed increasing secretions with concerns for aspiration. Admitted for the same. Difficulty obtaining IV access and Dr. Miller from vascular surgery was consulted. INTERVAL HISTORY: 12/02/2016: Patient resting quietly in bed eyes closed, noncommunicative. Patient requires frequent suctioning, secretions clear to frothy. Carmen suction equipment attached to tracheostomy to allow for suctioning. No evidence of tube feeding. Tube feeding infusing at 30 mL's an hour. 12/01/2016: Patient resting quietly in the bed eyes open, noncommunicative. Return from OR status post Rebolledo placement. Tube feeding to be initiated at 10 mL an hour to ensure the patient can tolerate. Goal per dietitian 30 mL's an hour. Tracheostomy has less secretions today. REVIEW OF SYSTEMS: Patient noncommunicative unable to obtain. CURRENT MEDICATIONS Baclofen, 20 mg per PEG tube 3 times a day, Tegretol 400 mg 3 times a day per PEG tube, Valium 2 mg twice a day per PEG tube, Vibramycin 100 mg by mouth twice a day, Lovenox 40 mg subcu daily, Keppra thousand milligrams twice a day per PEG tube, Ativan 1 mg IM every 6 hours when necessary for seizures Solu- Medrol 60 mg IM every 6 hours, Naprosyn 375 mg daily per PEG tube. PHYSICAL EXAM VITAL SIGNS: Temperature 98.5, pulse 80, respiratory rate 16, blood pressure 123/65, oxygen saturation 93% on trach collar. GENERAL APPEARANCE: Lying in bed, eyes closed, resting quietly appears comfortable. EYES: Pupils equal. Conjunctiva normal. NECK: JVD unable to assess. Tracheostomy, mild secretions noted . RESPIRATORY: Respiratory effort increased. Lungs coarse breath sounds bilaterally to auscultation. CARDIOVASCULAR: First and second sounds normal. No edema. ABDOMEN: Soft. No tenderness. PEG tube in place, tube feeding infusing at 30 mL 's an hour. PSYCHIATRY: Unable to assess patient nonverbal. NEUROLOGICAL: Bilateral arms and legs flexed and contracted. INVESTIGATIONS: CBC unremarkable creatinine 0.37, Accu-Cheks noted. Blood culture no growth after 48 hours Sputum culture: Many PMNs, rare epithelial cells, moderate gram-negative bacilli , rare gram-positive cocci. ASSESSMENT: -Aspiration pneumonia likely from feeding product likely chemical pneumonitis, oftentimes not infective, but we give antibiotic coverage, slow to respond -Hyponatremia, we'll check serum osmolality, resolved -Chronic PEG tube feeding. -Chronic tracheostomy. -Intermittent asthma. -Seizure disorder. -Cerebral palsy causing quadriplegia. -Double incontinent PLAN: Continue IV antibiotics per ID,await final results of the sputum culture. breathing treatments per pulmonary. Tolerating her tube feeding, discharge planning back to her intermediate the next 24-48 hours. We'll continue to monitor closely. SPECIAL PROCEDURE TECHNOLOGIST statement: Patient was seen and examined by nurse practitioner Anitha Pollock and all elements of the case discussed with attending Dr. Zepeda
[2016-12-02 17:13] LABS: Glucose,Whole Blood 151 mg/dL (75-99)
--- NOTE | 2016-12-02 18:12 | P.PN ---
Subjective 12/01/16- This 36-year-old debilitated white female presents with a complaint of some shortness of breath. She is non-communicative and therefore all history is obtained per her guardian. Her guardian relates that she normally receives feedings through her PEG tube over a period of time. They apparently just recently started giving her boluses of her feeding tube mixture. Today at approximately 10 AM she started coughing and having the feeding mixture leak out of her tracheostomy site. She seems to be having some slight decrease in her normal mentation and also has had some difficulty in breathing and increased cough. There has not been any known fever. Symptoms were relatively sudden in onset. This occurred while she was at her day program today. No other complaints or modifying factors. Patient was also at [facility] 2 weeks ago and she was not able to get IV access or a central line placement. PICC was attempted in ER by interventional radiology and was not successful. Vascular Surgery was consulted for access. Upon examination the patient is on 28% FiO2 via trach collar. 12/02/16- patient continues on 28% trach collar. Continues with SOB with activity. she is bed bound, and gets short of breath with care provided by staff. Patient did undergo a hickmann placement without difficulty. She is receiving nutritional support with continues feeds via PEG tube, so significant residual volumes. is non communicative. Objective - Vital Signs Vital signs: Vital Signs Temp 98.5 F 12/02/16 15:00 Pulse 90 12/02/16 16:13 Resp 18 12/02/16 16:02 BP 123/65 12/02/16 15:00 Pulse Ox 93 L 12/02/16 15:00 Intake & Output 12/01/16 12/02/16 12/02/16 18:59 06:59 18:59 Intake Total 10 50 400 Balance 10 50 400 Weight 45.359 kg 38 kg Intake: IV 100 Ampicillin-Sulbactam 3 gm 100 In Sodium Chloride 0.9% 100 ml @ 100 mls/hr IVPB Q8HR [facility] Rx#:[id number] Tube Feeding 10 50 180 Other 120 Other: Voiding Method Incontinent Incontinent # Voids 1 2 # Bowel Movements 1 1 - Exam GENERAL: The patient is well nourished and well hydrated. EYES: Pupils are round and reactive. Extraocular movements are intact. No conjunctival / lid redness or swelling. ENT: No external evidence of injury, swelling, or ecchymosis. Mucous membranes are moist. NECK: Nontender. No swelling or evidence of injury. No subcutaneous emphysema. The patient has a tracheostomy in place. HEART: Regular rate and rhythm. Good peripheral pulses. LUNGS/CHEST: Rhonchi and wheezing is noted to the bilateral lungs. No ecchymosis, subcutaneous emphysema, or tenderness. ABDOMEN: Abdomen soft without tenderness. No palpable masses or organomegaly. No peritoneal signs. No abdominal wall swelling or ecchymosis. A PEG tube is in place. EXTREMITIES: Contractures noted to extremities. NEUROLOGIC: The patient is chronically debilitated. She is alert at times but sleeping at times as well. SKIN: No abrasions or ecchymosis is noted. No induration or masses noted. PSYCHIATRIC: Patient is noncommunicative. - Labs CBC & Chem 7: 12/02/16 06:55 12/02/16 06:55 Labs: Abnormal Lab Results - Last 24 Hours (Table) 12/02/16 12/02/16 12/02/16 Range/Units 06:55 06:55 07:43 Lymphocytes # 0.9 L (1.0-4.8) k/uL Creatinine 0.37 L (0.52-1.04) mg/dL Glucose 123 H (74-99) mg/dL POC Glucose (mg/dL) 113 H (75-99) mg/dL 12/02/16 12/02/16 Range/Units 11:52 17:10 Lymphocytes # (1.0-4.8) k/uL Creatinine (0.52-1.04) mg/dL Glucose (74-99) mg/dL POC Glucose (mg/dL) 117 H 151 H (75-99) mg/dL Microbiology - Last 24 Hours (Table) 11/30/16 14:00 Blood Culture - Preliminary Blood No Growth after 48 hours 12/01/16 20:35 Gram Stain - Preliminary Sputum Sputum Culture - Preliminary Assessment and Plan Plan: Assessment Bilateral Pneumonia, suspect aspiration, can not rule out bacterial Acute on chronic hypoxic respiratory failure Medical debility Hyponatremia Cerebral Palsey Chronic Peg/trach Chronic persistent asthma Quadriplegia Seizure disorder Plan Medications have been reviewed and will be continued as ordered. Vascular for IV access completed with a severino port. Dietitian recommendations for nutritional support via peg tube. Continue with pulmonary hygiene, coughing and deep breathing exercises, and supportive care. Supplemental oxygen to maintain oxygen saturations of 92% or better. Continue nebulizer treatments. GI and DVT prophylaxis. We will continue to monitor labs/results and adjust treatment as necessary. Further recommendations pending. I performed an examination of the patient and discussed their management with the nurse practitioner. I have reviewed the nurse practitioner's note and agree with the documented findings and plan of care.
[2016-12-03 00:26] LABS: Glucose,Whole Blood 120 mg/dL (75-99)
[2016-12-03] MEDS: AMPICILLIN-SULBACTAM 3 GM in SODIUM CHLORIDE 0.9% 100 ML IVPB SCH ×4 (00:46→23:51)
[2016-12-03] MEDS: methylPREDNISolone SOD SUCCI 125 MG/2 ML VIAL IV SCH ×3 (00:47→12:37)
[2016-12-03 06:01] LABS: Glucose,Whole Blood 131 mg/dL (75-99)
--- NOTE | 2016-12-03 06:04 | PCN ---
PROCEDURE NOTE PREOPERATIVE DIAGNOSIS: Aspiration pneumonia. PROCEDURE: 1. Inferior venacavogram. 2. Placement of a 5-Vietnamese Medcomp dialysis catheter. PROCEDURE: This patient needed an IV access. 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 This patient was brought to the pathology laboratory aides teacher and first we checked the right IJ, which was occluded could not visualize and patient has a contracture of both upper extremities. We decided to go to through the right femoral approach. The right groin were prepped and draped in usual sterile manner and 1% lidocaine plain was infiltrated in the groin area. Micropuncture introduced the right femoral vein. Micropuncture guide was passed. There was some resistance noted. At this point, a 5-Vietnamese sheath was advanced and venacavogram was performed. Found to have, patient has an occluded of the vena cava, but common femoral was found to be patent. There was vein found in the pelvic area and there were multiple collaterals in the pelvic area noted. The gonadal veins were patent and lumbar veins were also patent, but they were large in size. At this point, we also found that the patient has a dislocated right knee joint. Anatomy of the pelvis was distorted. After that, we could pass guidewire and then 4-Vietnamese sheath was advanced off the guidewire. A tunnel was created. Through the tunnel, we brought Medcomp 5-Vietnamese catheter, which was divided and introduced through the sheath and at this point, we tried to flush the sheath, but no venous return was noted. Under fluoroscopy noted to have some foreign body in the Medcomp catheter, could not advance the guidewire through it. We decided to pull the catheter out and upon opening the catheter we found there was a piece of metal most likely from the broken end of the tunneler. Again I attempted to get the right femoral vein which was passed using micropuncture needle and micropuncture guide wire was passed again and sheath was advanced on the top of the guidewire and then a new Medcomp catheter was used and through the tunnel we brought to the femoral area and Medcomp catheter was divided and introduced through the sheath into the femoral vein and there were large veins in the pelvic area. Lumbar veins were patent and there was free flow of the blood in the catheter and flushed with heparin saline and hep-locked and this catheter was secured with 5-0 nylon. Dressing applied and patient tolerated the procedure well. PATRICIA / AMAURYN: [id number] /
[2016-12-03 07:18] LABS: Glucose,Whole Blood 104 mg/dL (75-99)
[2016-12-03] MEDS: BUDESONIDE 0.5 MG/2 ML NEBU INHALATION SCH ×2 (07:48→20:07)
[2016-12-03] MEDS: IPRATROPIUM-ALBUTEROL 3 ML NEB INHALATION SCH ×3 (07:48→20:07)
[2016-12-03] MEDS: carBAMazepine 200 MG TAB PEG/G-TUBE SCH ×3 (08:12→21:41)
[2016-12-03] MEDS: CHLORHEXIDINE GLUCONATE 15 ML CUP MUCOUS MEM SCH ×2 (08:12→21:41)
[2016-12-03] MEDS: DIAZEPAM 2 MG TAB PEG/G-TUBE SCH ×2 (08:12→21:39)
[2016-12-03] MEDS: BACLOFEN 10 MG TAB PEG/G-TUBE SCH ×3 (08:12→21:44)
[2016-12-03] MEDS: ENOXAPARIN 40 MG/0.4 ML SYRINGE SQ SCH (08:13)
[2016-12-03] MEDS: MONTELUKAST 10 MG TAB PEG/G-TUBE SCH (08:13)
[2016-12-03] MEDS: DOXYCYCLINE 50 MG CAP PO SCH (08:13)
[2016-12-03] MEDS: levETIRAcetam 500 MG TAB PEG/G-TUBE SCH ×2 (08:13→21:47)
[2016-12-03] MEDS: NAPROXEN 250 MG TAB PEG/G-TUBE SCH (08:13)
[2016-12-03] MEDS: FLUTICASONE 50MCG/SPRAY NASAL 16GM EA NOSTRIL SCH (08:13)
[2016-12-03] MEDS: NYSTATIN 100,000 UNIT/GM POWD 15 GM TOPICAL SCH ×2 (08:14→21:42)
[2016-12-03] MEDS: TRIAMCINOLONE 0.1% CREAM 80 GM TUBE TOPICAL SCH ×2 (08:14→21:43)
[2016-12-03 09:47] LABS: Anisocytosis Slight; Basophils % (A) 0 %; CH 28.7; CHCM 32.8; Eosinophils % (A) 0 %; HCT 33.3 % (34.0-46.0); HDW 2.57; HGB 10.5 gm/dL (11.4-16.0); Luc # (Auto) 0.07; Luc % (Auto) 2; Lymphocytes # (A) 0.7 k/uL (1.0-4.8); Lymphocytes % (A) 16 %; MCH 27.6 pg (25.0-35.0); MCHC 31.4 g/dL (31.0-37.0); MCV 87.8 fL (80.0-100.0); Monocytes # (A) 0.3 k/uL (0-1.0); Monocytes % (A) 6 %; Neutrophils # (A) 3.5 k/uL (1.3-7.7); Neutrophils % (A) 76 %; RDW 16.1 % (11.5-15.5); WBC 4.6 k/uL (3.8-10.6)
[2016-12-03 10:02] LABS: Anion Gap 9 mmol/L; Blood Urea Nitrogen 19 mg/dL (7-17); Calcium 8.9 mg/dL (8.4-10.2); Carbon Dioxide 26 mmol/L (22-30); Chloride 109 mmol/L (98-107); Glucose 120 mg/dL (74-99); Non-African American GFR(MDRD) >60 (>60 ml/min/1.73 sqM); Potassium 3.5 mmol/L (3.5-5.1); Sodium 144 mmol/L (137-145)
--- NOTE | 2016-12-03 10:13 | P.PN ---
Subjective 12/01/16- This 36-year-old debilitated white female presents with a complaint of some shortness of breath. She is non-communicative and therefore all history is obtained per her guardian. Her guardian relates that she normally receives feedings through her PEG tube over a period of time. They apparently just recently started giving her boluses of her feeding tube mixture. Today at approximately 10 AM she started coughing and having the feeding mixture leak out of her tracheostomy site. She seems to be having some slight decrease in her normal mentation and also has had some difficulty in breathing and increased cough. There has not been any known fever. Symptoms were relatively sudden in onset. This occurred while she was at her day program today. No other complaints or modifying factors. Patient was also at [facility] 2 weeks ago and she was not able to get IV access or a central line placement. PICC was attempted in ER by interventional radiology and was not successful. Vascular Surgery was consulted for access. Upon examination the patient is on 28% FiO2 via trach collar. 12/02/16- patient continues on 28% trach collar. Continues with SOB with activity. she is bed bound, and gets short of breath with care provided by staff. Patient did undergo a hickmann placement without difficulty. She is receiving nutritional support with continues feeds via PEG tube, so significant residual volumes. is non communicative. 12/03/16- patient being seen examined and evaluated today on the fourth floor. She continues to be on 28% trach collar and oxygen saturations in the mid to high 90s. She is hemodynamically stable. Continues to tolerate nutritional support via PEG tube without any significant residual volumes. At baseline she is non-communicative, and contracted. Patient does have a right femoral Rebolledo in place. Patient does have suction examined at bedside to be utilized as needed for sputum from trach. Objective - Vital Signs Vital signs: Vital Signs Temp 98.2 F 12/03/16 07:00 Pulse 69 12/03/16 08:02 Resp 18 12/03/16 07:00 BP 115/67 12/03/16 07:00 Pulse Ox 98 12/03/16 07:49 Intake & Output 12/02/16 12/03/16 12/03/16 18:59 06:59 18:59 Intake Total 400 Balance 400 Weight 40 kg Intake: IV 100 Ampicillin-Sulbactam 3 gm 100 In Sodium Chloride 0.9% 100 ml @ 100 mls/hr IVPB Q8HR [facility] Rx#:[id number] Tube Feeding 180 Other 120 Other: Voiding Method Incontinent Incontinent # Voids 2 # Bowel Movements 1 - Exam GENERAL: The patient is well nourished and well hydrated. EYES: Pupils are round and reactive. Extraocular movements are intact. No conjunctival / lid redness or swelling. ENT: No external evidence of injury, swelling, or ecchymosis. Mucous membranes are moist. NECK: Nontender. No swelling or evidence of injury. No subcutaneous emphysema. The patient has a tracheostomy in place. HEART: Regular rate and rhythm. Good peripheral pulses. LUNGS/CHEST: Coarse throughout, Rhonchi and wheezing is noted to the bilateral lungs. No ecchymosis, subcutaneous emphysema, or tenderness. ABDOMEN: Abdomen soft without tenderness. No palpable masses or organomegaly. No peritoneal signs. No abdominal wall swelling or ecchymosis. A PEG tube is in place. EXTREMITIES: Contractures noted to extremities. NEUROLOGIC: The patient is chronically debilitated. She is alert at times but sleeping at times as well. SKIN: No abrasions or ecchymosis is noted. No induration or masses noted. PSYCHIATRIC: Patient is noncommunicative. - Labs CBC & Chem 7: 12/03/16 09:20 12/03/16 09:20 Labs: Abnormal Lab Results - Last 24 Hours (Table) 12/02/16 12/02/16 12/03/16 Range/Units 11:52 17:10 00:25 Hgb (11.4-16.0) gm/dL Hct (34.0-46.0) % RDW (11.5-15.5) % Lymphocytes # (1.0-4.8) k/uL Chloride (98-107) mmol/L BUN (7-17) mg/dL Creatinine (0.52-1.04) mg/dL Glucose (74-99) mg/dL POC Glucose (mg/dL) 117 H 151 H 120 H (75-99) mg/dL 12/03/16 12/03/16 12/03/16 Range/Units 05:58 07:16 09:20 Hgb 10.5 L (11.4-16.0) gm/dL Hct 33.3 L (34.0-46.0) % RDW 16.1 H (11.5-15.5) % Lymphocytes # 0.7 L (1.0-4.8) k/uL Chloride (98-107) mmol/L BUN (7-17) mg/dL Creatinine (0.52-1.04) mg/dL Glucose (74-99) mg/dL POC Glucose (mg/dL) 131 H 104 H (75-99) mg/dL 12/03/16 Range/Units 09:20 Hgb (11.4-16.0) gm/dL Hct (34.0-46.0) % RDW (11.5-15.5) % Lymphocytes # (1.0-4.8) k/uL Chloride 109 H (98-107) mmol/L BUN 19 H (7-17) mg/dL Creatinine 0.35 L (0.52-1.04) mg/dL Glucose 120 H (74-99) mg/dL POC Glucose (mg/dL) (75-99) mg/dL Microbiology - Last 24 Hours (Table) 11/30/16 14:00 Blood Culture - Preliminary Blood No Growth after 48 hours Assessment and Plan Plan: Assessment Bilateral Pneumonia, suspect aspiration, can not rule out bacterial Acute on chronic hypoxic respiratory failure Medical debility Hyponatremia Cerebral Palsey Chronic Peg/trach Chronic persistent asthma Quadriplegia Seizure disorder Plan Medications have been reviewed and will be continued as ordered. Continue breathing treatments. Aspiration precautions. IV access via Rebolledo port. Continue with pulmonary hygiene, coughing and deep breathing exercises, and supportive care. Supplemental oxygen to maintain oxygen saturations of 92% or better. Continue nebulizer treatments. GI and DVT prophylaxis. We will continue to monitor labs/results and adjust treatment as necessary. Further recommendations pending. I performed an examination of the patient and discussed their management with the nurse practitioner. I have reviewed the nurse practitioner's note and agree with the documented findings and plan of care.
[2016-12-03 12:24] LABS: Glucose,Whole Blood 122 mg/dL (75-99)
--- NOTE | 2016-12-03 15:53 | P.PN ---
Progress Note - Text DATE OF SERVICE: 12/03/2016 PRESENTING COMPLAINT: Short of breath HISTORY OF PRESENT ILLNESS: 36-year-old female with cerebral palsy with quadriplegia contracted limbs, PEG tube and tracheostomy. Method of to feeding had recently been changed from continuous feeds to bolus feedings, this occurred 2 days ago patient developed increasing secretions with concerns for aspiration. Admitted for the same. Difficulty obtaining IV access and Dr. Miller from vascular surgery was consulted. INTERVAL HISTORY: 12/03/2016: Patient resting quietly in the bed eyes open, noncommunicative. Trach collar remains in place 28% FiO2, less secretions today remains clear to frothy, no evidence of tube feeding, tube feeding continues at 30 mL's an hour, continues to require high amount of oxygen sats are hovering between 90 and 93% on 28% trach collar, aspiration Precautions continue. 12/02/2016: patient resting quietly in bed eyes closed, noncommunicative. Patient requires frequent suctioning, secretions clear to frothy. Camren suction equipment attached to tracheostomy to allow for suctioning. No evidence of tube feeding. Tube feeding infusing at 30 mL's an hour. 12/01/2016: Patient resting quietly in the bed eyes open, noncommunicative. Return from OR status post Rebolledo placement. Tube feeding to be initiated at 10 mL an hour to ensure the patient can tolerate. Goal per dietitian 30 mL's an hour. Tracheostomy has less secretions today. REVIEW OF SYSTEMS: Patient noncommunicative unable to obtain. CURRENT MEDICATIONS Baclofen, 20 mg per PEG tube 3 times a day, Tegretol 400 mg 3 times a day per PEG tube, Valium 2 mg twice a day per PEG tube, Vibramycin 100 mg by mouth twice a day, Lovenox 40 mg subcu daily, Keppra thousand milligrams twice a day per PEG tube, Ativan 1 mg IM every 6 hours when necessary for seizures Solu- Medrol 60 mg IM every 6 hours, Naprosyn 375 mg daily per PEG tube. PHYSICAL EXAM VITAL SIGNS: Temperature 98.2, pulse 76, respiratory rate 18, blood pressure 115/67, oxygen saturation 92% on 28 % FiO2 trach collar GENERAL APPEARANCE: Lying in bed, eyes closed, resting quietly appears comfortable. EYES: Pupils equal. Conjunctiva normal. NECK: JVD unable to assess. Tracheostomy, mild clear secretions noted . RESPIRATORY: Respiratory effort increased. Lungs scattered crackles bilaterally to auscultation. CARDIOVASCULAR: First and second sounds normal. No edema. ABDOMEN: Soft. No tenderness. PEG tube in place, tube feeding infusing at 30 mL 's an hour. PSYCHIATRY: Unable to assess patient nonverbal. NEUROLOGICAL: Bilateral arms and legs flexed and contracted. INTEGUMENT: Right groin with Rebolledo catheter in place. INVESTIGATIONS: Hemoglobin 10.5, chloride 109, BUN 19, creatinine 0.35. Accu-Cheks noted. Blood culture no growth after 48 hours Sputum culture: Gram-negative bacilli ASSESSMENT: -Aspiration pneumonia likely from feeding product likely chemical pneumonitis, oftentimes not infective, but we give antibiotic coverage, slow to respond -Hyponatremia, we'll check serum osmolality, resolved -Chronic PEG tube feeding. -Chronic tracheostomy. -Intermittent asthma. -Seizure disorder. -Cerebral palsy causing quadriplegia. -Double incontinent PLAN: Continue IV antibiotics per ID,await final results of the sputum culture. breathing treatments per pulmonary. Tolerating her tube feeding, discharge planning back to her senior living the next 48 hours. We'll continue to monitor closely. PAYMENT ANALYST statement: Patient was seen and examined by nurse practitioner Anitha Pollock and all elements of the case discussed with attending Dr. Zepeda
[2016-12-03 16:56] LABS: Glucose,Whole Blood 128 mg/dL (75-99)
[2016-12-03] MEDS: methylPREDNISolone SOD SUCCI 40 MG/ML 1 ML VIAL IV SCH (17:50)
--- NOTE | 2016-12-03 19:32 | PN ---
PROGRESS NOTE DATE OF SERVICE: December 01, 2016. ATTENDING NOTE: This patient seen and examined by me. I discussed with my nurse practitioner, Ms. Pollock. The patient admitted with aspiration pneumonia likely from PEG tube feeding. Still requiring high-flow oxygen. The patient early in the day had gone down for IV access by Dr. Miller now in the right leg. PHYSICAL EXAMINATION: On examination, afebrile, pulse 96, respiration 22, blood pressure 105/71, pulse of 95% on high flow trach collar. Respiratory effort increased, lungs decreased breath sounds. Some scattered crackles. LABORATORY DATA: White count 4 potassium 3.6. ASSESSMENT: 1. Aspiration pneumonia likely chemical pneumonitis cannot rule out bacterial component. 2. Acute hypoxic respiratory failure on high-flow oxygen. PLAN: Tube feedings will be started at 10 mL an hour. Continue the oxygen support. Told the nurse to keep deep suctioning. MMODL / IJN: [id number] /
--- NOTE | 2016-12-03 19:37 | PN ---
PROGRESS NOTE DATE OF SERVICE: December 03, 2016. ATTENDING NOTE: This patient was seen and examined by me. I discussed with my nurse practitioner, Ms. Pollock. The patient admitted with aspiration pneumonitis on 8 L of oxygen. Tube feedings at 30 mL an hour. PHYSICAL EXAMINATION: On examination lungs improved air entry. The patient breathing more restful. LABORATORY DATA: Investigations: White count 4.6. Potassium 3.5. ASSESSMENT: 1. Acute aspiration pneumonitis from tube feeding product causing acute hypoxic respiratory failure. 2. Hyponatremia improved. PLAN: Continue with Unasyn. We will try some chest PT. Drop down the Solu-Medrol. Other medications to continue. MMODL / IJN: [id number] /
--- NOTE | 2016-12-03 19:37 | PN ---
PROGRESS NOTE DATE OF SERVICE: 12/02/16 ATTENDING NOTE: This patient was seen and examined by me. Care was discussed with my nurse practitioner, Ms. Pollock. The patient is admitted with aspiration pneumonitis still requiring high-flow oxygen. Less audible crackles. PHYSICAL EXAMINATION: On examination, afebrile, respiration 22, pulse of 93% on trach collar. Lungs bilateral chronic crackles. Chest x-ray noted showing, some elevation of left diaphragm. Maybe some infiltrate at the posterior part. ASSESSMENT: 1. Aspiration pneumonitis likely a chemical one cannot rule out bacterial component causing acute hypoxic respiratory failure. 2. Hyponatremia improved. PLAN: Continue with supportive care. IV Unasyn. Oxygen support. MMODL / IJN: [id number] /
[2016-12-03 23:48] LABS: Glucose,Whole Blood 95 mg/dL (75-99)
[2016-12-04] MEDS: methylPREDNISolone SOD SUCCI 40 MG/ML 1 ML VIAL IV SCH (05:43)
[2016-12-04 06:08] LABS: Glucose,Whole Blood 89 mg/dL (75-99)
[2016-12-04] MEDS: IPRATROPIUM-ALBUTEROL 3 ML NEB INHALATION SCH ×3 (07:08→19:42)
[2016-12-04] MEDS: BUDESONIDE 0.5 MG/2 ML NEBU INHALATION SCH ×2 (07:08→19:42)
[2016-12-04] MEDS: ENOXAPARIN 40 MG/0.4 ML SYRINGE SQ SCH (08:14)
[2016-12-04] MEDS: AMPICILLIN-SULBACTAM 3 GM in SODIUM CHLORIDE 0.9% 100 ML IVPB SCH ×3 (08:14→23:44)
[2016-12-04] MEDS: MONTELUKAST 10 MG TAB PEG/G-TUBE SCH (08:14)
[2016-12-04] MEDS: carBAMazepine 200 MG TAB PEG/G-TUBE SCH ×3 (08:14→23:12)
[2016-12-04] MEDS: DIAZEPAM 2 MG TAB PEG/G-TUBE SCH ×2 (08:14→23:15)
[2016-12-04] MEDS: BACLOFEN 10 MG TAB PEG/G-TUBE SCH ×3 (08:14→23:13)
[2016-12-04] MEDS: TRIAMCINOLONE 0.1% CREAM 80 GM TUBE TOPICAL SCH ×2 (08:14→23:13)
[2016-12-04] MEDS: levETIRAcetam 500 MG TAB PEG/G-TUBE SCH ×2 (08:14→23:12)
[2016-12-04] MEDS: FLUTICASONE 50MCG/SPRAY NASAL 16GM EA NOSTRIL SCH (08:14)
[2016-12-04] MEDS: NYSTATIN 100,000 UNIT/GM POWD 15 GM TOPICAL SCH ×2 (08:16→23:14)
[2016-12-04] MEDS: CHLORHEXIDINE GLUCONATE 15 ML CUP MUCOUS MEM SCH ×2 (08:19→23:14)
[2016-12-04] MEDS: NAPROXEN 250 MG TAB PEG/G-TUBE SCH (10:25)
[2016-12-04 15:54] LABS: Glucose,Whole Blood 102 mg/dL (75-99)
--- NOTE | 2016-12-04 16:10 | P.PN ---
Subjective 12/01/16- This 36-year-old debilitated white female presents with a complaint of some shortness of breath. She is non-communicative and therefore all history is obtained per her guardian. Her guardian relates that she normally receives feedings through her PEG tube over a period of time. They apparently just recently started giving her boluses of her feeding tube mixture. Today at approximately 10 AM she started coughing and having the feeding mixture leak out of her tracheostomy site. She seems to be having some slight decrease in her normal mentation and also has had some difficulty in breathing and increased cough. There has not been any known fever. Symptoms were relatively sudden in onset. This occurred while she was at her day program today. No other complaints or modifying factors. Patient was also at [facility] 2 weeks ago and she was not able to get IV access or a central line placement. PICC was attempted in ER by interventional radiology and was not successful. Vascular Surgery was consulted for access. Upon examination the patient is on 28% FiO2 via trach collar. 12/02/16- patient continues on 28% trach collar. Continues with SOB with activity. she is bed bound, and gets short of breath with care provided by staff. Patient did undergo a hickmann placement without difficulty. She is receiving nutritional support with continues feeds via PEG tube, so significant residual volumes. is non communicative. 12/03/16- patient being seen examined and evaluated today on the fourth floor. She continues to be on 28% trach collar and oxygen saturations in the mid to high 90s. She is hemodynamically stable. Continues to tolerate nutritional support via PEG tube without any significant residual volumes. At baseline she is non-communicative, and contracted. Patient does have a right femoral Rebolledo in place. Patient does have suction examined at bedside to be utilized as needed for sputum from trach. 12/04/2016, patient seen and evaluated examined during the rounds she is on 6 L at trach collar her sats are 9092% she is awake but remains nonverbal and noncommunicative, baseline is 28% currently FiO2 has been escalated due to given breathing treatments some light pale secretions are noted from the trach but no significant excessive secretions identified Objective - Vital Signs Vital signs: Vital Signs Temp 97 F L 12/04/16 07:00 Pulse 86 12/04/16 13:29 Resp 16 12/04/16 07:00 BP 117/65 12/04/16 07:00 Pulse Ox 95 12/04/16 11:06 Intake & Output 12/03/16 12/04/16 12/04/16 18:59 06:59 18:59 Intake Total 240 360 Balance 240 360 Weight 40.5 kg Intake: Tube Feeding 240 360 Other: Voiding Method Incontinent Incontinent Incontinent # Voids 2 - Exam GENERAL: The patient is well nourished and well hydrated. EYES: Pupils are round and reactive. Extraocular movements are intact. No conjunctival / lid redness or swelling. ENT: No external evidence of injury, swelling, or ecchymosis. Mucous membranes are moist. NECK: Nontender. No swelling or evidence of injury. No subcutaneous emphysema. The patient has a tracheostomy in place. HEART: Regular rate and rhythm. Good peripheral pulses. LUNGS/CHEST: Coarse throughout, Rhonchi and wheezing is noted to the bilateral lungs. No ecchymosis, subcutaneous emphysema, or tenderness. ABDOMEN: Abdomen soft without tenderness. No palpable masses or organomegaly. No peritoneal signs. No abdominal wall swelling or ecchymosis. A PEG tube is in place. EXTREMITIES: Contractures noted to extremities. NEUROLOGIC: The patient is chronically debilitated. She is alert at times but sleeping at times as well. SKIN: No abrasions or ecchymosis is noted. No induration or masses noted. PSYCHIATRIC: Patient is noncommunicative. - Labs CBC & Chem 7: 12/03/16 09:20 12/03/16 09:20 Labs: Abnormal Lab Results - Last 24 Hours (Table) 12/03/16 12/04/16 Range/Units 16:54 11:57 POC Glucose (mg/dL) 128 H 102 H (75-99) mg/dL Microbiology - Last 24 Hours (Table) 12/01/16 20:35 Gram Stain - Final Sputum Sputum Culture - Final Pseudomonas aeruginosa Pseudomonas aeruginosa#2 11/30/16 14:00 Blood Culture - Preliminary Blood No Growth after 72 hours Assessment and Plan Plan: Bilateral Pneumonia, likely chronic intermittent aspiration related mixed bacterial infection l Acute on chronic hypoxic respiratory failure Medical debility Hyponatremia Cerebral Palsey Chronic Peg/trach Chronic persistent asthma Quadriplegia Seizure disorder Plan Medications have been reviewed and will be continued as ordered. Continue breathing treatments. Aspiration precautions. IV access via Rebolledo port. Continue with pulmonary hygiene, coughing and deep breathing exercises, and supportive care. Supplemental oxygen to maintain oxygen saturations of 92% or better. Continue nebulizer treatments. GI and DVT prophylaxis. We will continue to monitor labs/results and adjust treatment as necessary. Further recommendations p Time with Patient: Greater than 30
--- NOTE | 2016-12-04 16:58 | P.PN ---
Progress Note - Text DATE OF SERVICE: 12/04/2016 PRESENTING COMPLAINT: Short of breath HISTORY OF PRESENT ILLNESS: 36-year-old female with cerebral palsy with quadriplegia contracted limbs, PEG tube and tracheostomy. Method of to feeding had recently been changed from continuous feeds to bolus feedings, this occurred 2 days ago patient developed increasing secretions with concerns for aspiration. Admitted for the same. Difficulty obtaining IV access and Dr. Miller from vascular surgery was consulted. INTERVAL HISTORY: 12/04/2016: Patient resting quietly in bed, noncommunicative. Trach collar at 28% FiO2, oxygen saturation 95-100%, less secretions, clear to frothy, no evidence of tube feeding, tube feeding continues at 30 mL an hour, aspiration precautions in place. Sputum cultures positive for pseudomonas aeruginosa currently on ampicillin, will adjust accordingly. 12/03/2016: Patient resting quietly in the bed eyes open, noncommunicative. Trach collar remains in place 28% FiO2, less secretions today remains clear to frothy, no evidence of tube feeding, tube feeding continues at 30 mL's an hour, continues to require high amount of oxygen sats are hovering between 90 and 93% on 28% trach collar, aspiration Precautions continue. 12/02/2016: patient resting quietly in bed eyes closed, noncommunicative. Patient requires frequent suctioning, secretions clear to frothy. Carmen suction equipment attached to tracheostomy to allow for suctioning. No evidence of tube feeding. Tube feeding infusing at 30 mL's an hour. 12/01/2016: Patient resting quietly in the bed eyes open, noncommunicative. Return from OR status post Rebolledo placement. Tube feeding to be initiated at 10 mL an hour to ensure the patient can tolerate. Goal per dietitian 30 mL's an hour. Tracheostomy has less secretions today. REVIEW OF SYSTEMS: Patient noncommunicative unable to obtain. CURRENT MEDICATIONS Baclofen, 20 mg per PEG tube 3 times a day, Tegretol 400 mg 3 times a day per PEG tube, Valium 2 mg twice a day per PEG tube, Vibramycin 100 mg by mouth twice a day, Lovenox 40 mg subcu daily, Keppra thousand milligrams twice a day per PEG tube, Ativan 1 mg IM every 6 hours when necessary for seizures Solu- Medrol 60 mg IM every 6 hours, Naprosyn 375 mg daily per PEG tube. PHYSICAL EXAM VITAL SIGNS: Temperature 97.0, pulse 84, respiratory rate 16, blood pressure 117/65, oxygen saturation 99% on trach collar. GENERAL APPEARANCE: Lying in bed, eyes closed, resting quietly appears comfortable. EYES: Pupils equal. Conjunctiva normal. NECK: JVD unable to assess. Tracheostomy, mild clear secretions noted . RESPIRATORY: Respiratory effort increased. Lungs scattered crackles bilaterally to auscultation. CARDIOVASCULAR: First and second sounds normal. No edema. ABDOMEN: Soft. No tenderness. PEG tube in place, tube feeding infusing at 30 mL 's an hour. PSYCHIATRY: Unable to assess patient nonverbal. NEUROLOGICAL: Bilateral arms and legs flexed and contracted. INTEGUMENT: Right groin with Rebolledo catheter in place. INVESTIGATIONS: Accu-Cheks noted. Blood culture no growth after 96 hours Sputum culture: Pseudomonas aeruginosa ASSESSMENT: -Aspiration pneumonia likely from feeding product likely chemical pneumonitis, oftentimes not infective, but we give antibiotic coverage, slow to respond -Hyponatremia, we'll check serum osmolality, resolved -Chronic PEG tube feeding. -Chronic tracheostomy. -Intermittent asthma. -Seizure disorder. -Cerebral palsy causing quadriplegia. -Double incontinent PLAN: Continue IV antibiotics per ID, sputum culture positive for pseudomonas aeruginosa, breathing treatments per pulmonary. Tolerating her tube feeding, discharge planning back to her snf the next 48 hours. We'll continue to monitor closely. NURSING STAFFING COORDINATOR statement: Patient was seen and examined by nurse practitioner Anitha Pollock and all elements of the case discussed with attending Dr. Zepeda
[2016-12-04 18:02] LABS: Glucose,Whole Blood 94 mg/dL (75-99)
[2016-12-05 02:22] LABS: Glucose,Whole Blood 88 mg/dL (75-99)
[2016-12-05 07:03] LABS: Glucose,Whole Blood 97 mg/dL (75-99)
[2016-12-05] MEDS: IPRATROPIUM-ALBUTEROL 3 ML NEB INHALATION SCH ×2 (08:26→13:18)
[2016-12-05] MEDS: BUDESONIDE 0.5 MG/2 ML NEBU INHALATION SCH (08:26)
[2016-12-05] MEDS ORDERED: LEVOFLOXACIN 500MG-D5W PMX 500 MG in DEXTROSE/WATER 1 100ML.BAG IVPB SCH (09:00)
[2016-12-05 09:34] VITALS: BMI 23.2
--- NOTE | 2016-12-05 09:36 | PN ---
PROGRESS NOTE DATE OF SERVICE: 12/04/2016 ATTENDING NOTE: This patient was seen and examined by me. I discussed with my nurse practitioner, Ms. Pollock. Patient admitted with aspiration pneumonitis, comfortable, breathing is better. On exam: LUNGS: Improved air entry. CARDIOVASCULAR: First and second sounds are normal. Patient tolerating tube feeding. Sputum cultures have been positive for Pseudomonas. ASSESSMENT: Aspiration pneumonitis, sputum positive for Pseudomonas. PLAN: Continue current antibiotics and follow up with Pulmonary. MMODL / IJN: [id number] /
[2016-12-05] MEDS: carBAMazepine 200 MG TAB PEG/G-TUBE SCH ×2 (11:18→17:07)
[2016-12-05] MEDS: FLUTICASONE 50MCG/SPRAY NASAL 16GM EA NOSTRIL SCH (11:18)
[2016-12-05] MEDS: NAPROXEN 250 MG TAB PEG/G-TUBE SCH (11:18)
[2016-12-05] MEDS: ENOXAPARIN 40 MG/0.4 ML SYRINGE SQ SCH (11:18)
[2016-12-05] MEDS: BACLOFEN 10 MG TAB PEG/G-TUBE SCH ×2 (11:19→17:07)
[2016-12-05] MEDS: levETIRAcetam 500 MG TAB PEG/G-TUBE SCH (11:19)
[2016-12-05] MEDS: MONTELUKAST 10 MG TAB PEG/G-TUBE SCH (11:20)
[2016-12-05] MEDS: CHLORHEXIDINE GLUCONATE 15 ML CUP MUCOUS MEM SCH (11:21)
[2016-12-05] MEDS: TRIAMCINOLONE 0.1% CREAM 80 GM TUBE TOPICAL SCH (11:24)
[2016-12-05] MEDS: NYSTATIN 100,000 UNIT/GM POWD 15 GM TOPICAL SCH (11:24)
[2016-12-05] MEDS: DIAZEPAM 2 MG TAB PEG/G-TUBE SCH (11:24)
[2016-12-05 11:34] LABS: Glucose,Whole Blood 104 mg/dL (75-99)
[2016-12-05] MEDS: AMPICILLIN-SULBACTAM 3 GM in SODIUM CHLORIDE 0.9% 100 ML IVPB SCH (12:31)
--- NOTE | 2016-12-05 14:39 | P.PN ---
Subjective 12/01/16- This 36-year-old debilitated white female presents with a complaint of some shortness of breath. She is non-communicative and therefore all history is obtained per her guardian. Her guardian relates that she normally receives feedings through her PEG tube over a period of time. They apparently just recently started giving her boluses of her feeding tube mixture. Today at approximately 10 AM she started coughing and having the feeding mixture leak out of her tracheostomy site. She seems to be having some slight decrease in her normal mentation and also has had some difficulty in breathing and increased cough. There has not been any known fever. Symptoms were relatively sudden in onset. This occurred while she was at her day program today. No other complaints or modifying factors. Patient was also at [facility] 2 weeks ago and she was not able to get IV access or a central line placement. PICC was attempted in ER by interventional radiology and was not successful. Vascular Surgery was consulted for access. Upon examination the patient is on 28% FiO2 via trach collar. 12/02/16- patient continues on 28% trach collar. Continues with SOB with activity. she is bed bound, and gets short of breath with care provided by staff. Patient did undergo a hickmann placement without difficulty. She is receiving nutritional support with continues feeds via PEG tube, so significant residual volumes. is non communicative. 12/03/16- patient being seen examined and evaluated today on the fourth floor. She continues to be on 28% trach collar and oxygen saturations in the mid to high 90s. She is hemodynamically stable. Continues to tolerate nutritional support via PEG tube without any significant residual volumes. At baseline she is non-communicative, and contracted. Patient does have a right femoral Rebolledo in place. Patient does have suction examined at bedside to be utilized as needed for sputum from trach. 12/04/2016, patient seen and evaluated examined during the rounds she is on 6 L at trach collar her sats are 9092% she is awake but remains nonverbal and noncommunicative, baseline is 28% currently FiO2 has been escalated due to given breathing treatments some light pale secretions are noted from the trach but no significant excessive secretions identified 12/05/2016, patient seen eval reexamined she remains on 28% trach collar sats are 9094% her sputum finally came back positive for pseudomonas but however given presence of abnormal x-ray and secretions being clear likely appears to be colonization, patient currently appropriately being treated with IV Levaquin she can finish to the oral Levaquin as an outpatient setting, as discussed with primary service patient is being arranged for possible discharge later on today Objective - Vital Signs Vital signs: Vital Signs Temp 98.5 F 12/05/16 07:00 Pulse 115 H 12/05/16 13:29 Resp 22 12/05/16 07:00 BP 106/51 12/05/16 07:00 Pulse Ox 92 L 12/05/16 07:00 Intake & Output 12/04/16 12/05/16 12/05/16 18:59 06:59 18:59 Intake Total 0 Balance 0 Weight 40.5 kg 40.5 kg Intake: Oral 0 Other: Voiding Method Incontinent Incontinent Incontinent # Voids 2 - Exam GENERAL: The patient is well nourished and well hydrated. EYES: Pupils are round and reactive. Extraocular movements are intact. No conjunctival / lid redness or swelling. ENT: No external evidence of injury, swelling, or ecchymosis. Mucous membranes are moist. NECK: Nontender. No swelling or evidence of injury. No subcutaneous emphysema. The patient has a tracheostomy in place. HEART: Regular rate and rhythm. Good peripheral pulses. LUNGS/CHEST: Coarse throughout, Rhonchi and wheezing is noted to the bilateral lungs. No ecchymosis, subcutaneous emphysema, or tenderness. ABDOMEN: Abdomen soft without tenderness. No palpable masses or organomegaly. No peritoneal signs. No abdominal wall swelling or ecchymosis. A PEG tube is in place. EXTREMITIES: Contractures noted to extremities. NEUROLOGIC: The patient is chronically debilitated. She is alert at times but sleeping at times as well. SKIN: No abrasions or ecchymosis is noted. No induration or masses noted. PSYCHIATRIC: Patient is noncommunicative. - Labs CBC & Chem 7: 12/03/16 09:20 12/03/16 09:20 Labs: Abnormal Lab Results - Last 24 Hours (Table) 12/04/16 12/05/16 Range/Units 11:57 11:26 POC Glucose (mg/dL) 102 H 104 H (75-99) mg/dL Microbiology - Last 24 Hours (Table) 11/30/16 14:00 Blood Culture - Preliminary Blood No Growth after 96 hours 12/01/16 20:35 Gram Stain - Final Sputum Sputum Culture - Final Pseudomonas aeruginosa Pseudomonas aeruginosa#2 Assessment and Plan Plan: Bilateral Pneumonia, likely chronic intermittent aspiration related mixed bacterial infection l Acute on chronic hypoxic respiratory failure Medical debility Hyponatremia Cerebral Palsey Chronic Peg/trach Chronic persistent asthma Quadriplegia Seizure disorder Plan Medications have been reviewed and will be continued as ordered. Continue breathing treatments. Aspiration precautions. IV access via Rebolledo port. Continue with pulmonary hygiene, coughing and deep breathing exercises, and supportive care. Supplemental oxygen to maintain oxygen saturations of 92% or better. Continue nebulizer treatments. GI and DVT prophylaxis. We will continue to monitor labs/results and adjust treatment as necessary. Further recommendations p Time with Patient: Greater than 30
[2016-12-05 14:44] VITALS: BP 121/88; PULSE 89; RESP 20; TEMP 98.4
--- NOTE | 2016-12-05 20:55 | PCN ---
PROCEDURE NOTE ADDENDUM: Placement of 5 [place] Medcomp single-lumen catheter, right femoral approach. MMODL / IJN: [id number] /
--- NOTE | 2016-12-05 23:01 | DS ---
DISCHARGE SUMMARY ADDENDUM TO DISCHARGE SUMMARY. ATTENDING NOTE: This patient was seen and examined by me. I discussed with my nurse practitioner, Ms. Pollock. Patient doing well. Comfortable. PHYSICAL EXAMINATION: LUNGS: Clear. Patient is on room air, off oxygen. ASSESSMENT: Aspiration pneumonitis and colonization with pseudomonas. PLAN: I discussed with Dr. Christina. We both agree that because patient has done clinically really well without any coverage, pseudomonas is most likely colonization, with patient being afebrile with normal white count. No further antibiotics on discharge. Total time for discharge planning more than 35 minutes. MMODL / IJN: [id number] /
== END 2016-12-05 18:25 | disposition home or self-care (01) | DRG 177 ==
LOC: EC 11:17 → 5MS5E 14:51 → 4MS4W 17:03
PROVIDERS: ADMIT Hospitalist; ATTEND Hospitalist
PROC: 06HM33Z Insertion of Infusion Device into Right Femoral Vein, Percutaneous Approach (ICD-10-PCS; principal; 2016-12-02)
PROC: B5191ZZ Fluoroscopy of Inferior Vena Cava using Low Osmolar Contrast (ICD-10-PCS; 2016-12-02)
DX: J69.0 Pneumonitis due to inhalation of food and vomit (principal); J96.21 Acute and chronic respiratory failure with hypoxia; G82.50 Quadriplegia, unspecified; E87.1 Hypo-osmolality and hyponatremia; Z93.0 Tracheostomy status; J15.1 Pneumonia due to Pseudomonas; G80.9 Cerebral palsy, unspecified; J45.20 Mild intermittent asthma, uncomplicated; F79 Unspecified intellectual disabilities; G40.909 Epilepsy, unspecified, not intractable, without status epilepticus; R32 Unspecified urinary incontinence; R15.9 Full incontinence of feces; Z74.01 Bed confinement status; Z79.899 Other long term (current) drug therapy; Z93.1 Gastrostomy status; Z99.3 Dependence on wheelchair; Z86.14 Personal history of Methicillin resistant Staphylococcus aureus infection
CPT/HCPCS: 36415; 36556; 36569; 71010; 76937; 77001; 80048; 80053; 82550; 82553; 83735; 84484; 85025; 85610; 85730; 87040; 87070; 87077; 87186; 87205; 94640; 94760; 96372; 99285

== ENCOUNTER 2017-01-03 18:07 | Emergency (ER) | payer MEDICARE, OTHER ==
--- NOTE | 2017-01-03 18:38 | ED ---
General Adult HPI - General Chief complaint: Shortness of Breath Stated complaint: ALF Time Seen by Provider: 01/03/17 18:07 Source: EMS, RN notes reviewed Mode of arrival: EMS Limitations: no limitations - History of Present Illness Initial comments: This is a 36-year-old female who has a past medical history significant for cerebral palsy and has a tracheostomy and been recently treated for pneumonia. Patient is unable to give any history there is no one who came with the patient that history that we have received from the paramedics. Paramedics stated they will call for difficulty breathing when they got there the patient was wheezing they did give a treatment in route and it seemed to help but the patient still had rhonchi bilaterally according to the podiatrist assistant. The patient had temp of 99 1. There was no history of any vomiting or diarrhea and no other history was available this time. - Related Data Home Medications Medication Instructions Recorded Confirmed Albuterol Nebulized [Ventolin 2.5 mg INHALATION RT-QID 06/06/16 11/30/16 Nebulized] Baclofen [Lioresal] 20 mg PEG/G-TUBE TID 06/06/16 11/30/16 Diazepam 2 mg PEG/G-TUBE BID 06/06/16 11/30/16 Diazepam [Diastat] 20 mg RECTAL Q5M PRN 06/06/16 11/30/16 Montelukast Sodium [Singulair] 10 mg PEG/G-TUBE QAM 06/06/16 11/30/16 carBAMazepine [TEGretol Susp] 400 mg PEG/G-TUBE TID 06/06/16 11/30/16 levETIRAcetam 1,000 mg PEG/G-TUBE BID 06/06/16 11/30/16 Bisacodyl [Dulcolax] 10 mg RECTAL DAILY PRN 11/30/16 11/30/16 Budesonide [Pulmicort] 0.5 mg INHALATION RT-BID 11/30/16 11/30/16 Chlorhexidine Gluconate [Peridex] 1 applic MUCOUS MEM BID 11/30/16 11/30/16 Fibersource Hn Liquid 1 can PEG/G-TUBE TID 11/30/16 11/30/16 Mometasone Furoate [Nasonex Nasal 1 spray EA NOSTRIL DAILY 11/30/16 11/30/16 Anton] Naproxen [Naprosyn] 375 mg PEG/G-TUBE DAILY 11/30/16 11/30/16 Nystatin 100,000 Unit/gm Powd 1 applic TOPICAL BID 11/30/16 11/30/16 [Mycostatin Powder] Polyethylene Glycol 3350 [Miralax] 17 gm PEG/G-TUBE DAILY PRN 11/30/16 11/30/16 Triamcinolone 0.1% Lotion [Kenalog 1 applic TOPICAL BID 11/30/16 11/30/16 0.1% Lotion] Allergies Allergy/AdvReac Type Severity Reaction Status Date / Time No Known Allergies Allergy Verified 11/30/16 11:48 Review of Systems ROS Statement: Those systems with pertinent positive or pertinent negative responses have been documented in the HPI. ROS Other: All systems not noted in ROS Statement are negative. Past Medical History Past Medical History: Asthma, Musculoskeletal Disorder, Seizure Disorder Additional Past Medical History / Comment(s): celebral palsy , mental retardation- non verbal, has feeding tube and trach tube, no recorded of last seizure at half-way. quadraplegic, non ambulatory in wheelchair, transfers with lift -no wt bearing. hx stool impactions, incontinent of urine and stool- wears depends History of Any Multi-Drug Resistant Organisms: MRSA Date of last positivie culture/infection: 05/25/16 MDRO Source:: Abdomen Past Surgical History: Orthopedic Surgery Additional Past Surgical History / Comment(s): EGD/ peg tube, Left hip bone removed, trachestomy Past Anesthesia/Blood Transfusion Reactions: No Reported Reaction Past Psychological History: Unable to Obtain Smoking Status: Never smoker Past Alcohol Use History: None Reported Past Drug Use History: None Reported - Past Family History Mother Family Medical History: Unable to Obtain Additional Family Medical History / Comment(s): no hx at half-way General Exam - General Exam Comments Initial Comments: GENERAL: Patient is well-developed and well-nourished. Patient is nontoxic and well- hydrated and is in no acute distress. Patient is contracted. ENT: Moist mucous membranes. EYES: The sclera were anicteric and conjunctiva were pink and moist. PULMONARY: Patient has rhonchi bilaterally but difficult to tell if it's coming from upper airway or lower airway CARDIOVASCULAR: There is a regular rate ABDOMEN: Soft and nontender with normal bowel sounds. SKIN: Skin is clear with no lesions or rashes and otherwise unremarkable. NEUROLOGIC: Patient is alert but not oriented and this is her baseline. LYMPHATICS: No significant lymphadenopathy is noted PSYCHIATRIC: Unable to evaluate Limitations: no limitations Course Vital Signs 01/03/17 01/03/17 01/03/17 18:08 18:40 19:01 Temperature 99.6 F 99.5 F Pulse Rate 91 Respiratory 26 H 26 H Rate Blood Pressure 147/88 O2 Sat by Pulse 97 Oximetry 01/03/17 19:06 Temperature Pulse Rate 96 Respiratory 26 H Rate Blood Pressure 121/65 O2 Sat by Pulse 96 Oximetry Medical Decision Making - Medical Decision Making EKG shows a normal sinus rhythm at 92 bpm FL interval is 122 QRS is 70 Q-T intervals 342 QTC is 422. Patient's EKG shows no ST segment elevation or depression or T wave abnormalities are noted. Chest x-ray showed no acute abnormality. I went back into the room to reevaluate the patient her pulse ox was 97% on room air. Patient was in no rectal distress. Caregivers in the room and agreed the patient has no breast her distress. Caregiver agreed that she would bring her back there was any difficulty breathing or fever. - Lab Data Result diagrams: 01/03/17 19:18 01/03/17 19:18 Lab Results 01/03/17 01/03/17 01/03/17 Range/Units 18:32 19:18 19:18 WBC 4.9 (3.8-10.6) k/uL RBC 4.59 (3.80-5.40) m/uL Hgb 12.2 (11.4-16.0) gm/dL Hct 39.9 (34.0-46.0) % MCV 86.9 (80.0-100.0) fL MCH 26.6 (25.0-35.0) pg MCHC 30.6 L (31.0-37.0) g/dL RDW 16.4 H (11.5-15.5) % Plt Count 229 (150-450) k/uL Neutrophils % 57 % Lymphocytes % 29 % Monocytes % 7 % Eosinophils % 4 % Basophils % 1 % Neutrophils # 2.8 (1.3-7.7) k/uL Lymphocytes # 1.4 (1.0-4.8) k/uL Monocytes # 0.3 (0-1.0) k/uL Eosinophils # 0.2 (0-0.7) k/uL Basophils # 0.0 (0-0.2) k/uL Hypochromasia Slight Anisocytosis Slight PT 10.8 (9.0-12.0) sec INR 1.1 (<1.2) APTT 24.2 (22.0-30.0) sec Sodium (137-145) mmol/L Potassium (3.5-5.1) mmol/L Chloride (98-107) mmol/L Carbon Dioxide (22-30) mmol/L Anion Gap mmol/L BUN (7-17) mg/dL Creatinine (0.52-1.04) mg/dL Est GFR (MDRD) Af Amer (>60 ml/min/1.73 sqM) Est GFR (MDRD) Non-Af (>60 ml/min/1.73 sqM) Glucose (74-99) mg/dL Plasma Lactic Acid Jabier (0.7-2.0) mmol/L Calcium (8.4-10.2) mg/dL Total Bilirubin (0.2-1.3) mg/dL AST (14-36) U/L ALT (9-52) U/L Alkaline Phosphatase (38-126) U/L Total Protein (6.3-8.2) g/dL Albumin (3.5-5.0) g/dL Urine Color Yellow Urine Appearance Turbid H (Clear) Urine pH 7.5 (5.0-8.0) Ur Specific [place] 1.012 (1.001-1.035) Urine Protein Negative (Negative) Urine Glucose (UA) Negative (Negative) Urine Ketones Negative (Negative) Urine Blood Negative (Negative) Urine Nitrite Negative (Negative) Urine Bilirubin Negative (Negative) Urine Urobilinogen <2.0 (<2.0) mg/dL Ur Leukocyte Esterase Negative (Negative) Ur Squamous Epith Cells 3 (0-4) /hpf Amorphous Sediment Few H (None) /hpf 01/03/17 01/03/17 Range/Units 19:18 19:18 WBC (3.8-10.6) k/uL RBC (3.80-5.40) m/uL Hgb (11.4-16.0) gm/dL Hct (34.0-46.0) % MCV (80.0-100.0) fL MCH (25.0-35.0) pg MCHC (31.0-37.0) g/dL RDW (11.5-15.5) % Plt Count (150-450) k/uL Neutrophils % % Lymphocytes % % Monocytes % % Eosinophils % % Basophils % % Neutrophils # (1.3-7.7) k/uL Lymphocytes # (1.0-4.8) k/uL Monocytes # (0-1.0) k/uL Eosinophils # (0-0.7) k/uL Basophils # (0-0.2) k/uL Hypochromasia Anisocytosis PT (9.0-12.0) sec INR (<1.2) APTT (22.0-30.0) sec Sodium 136 L (137-145) mmol/L Potassium 4.3 (3.5-5.1) mmol/L Chloride 103 (98-107) mmol/L Carbon Dioxide 21 L (22-30) mmol/L Anion Gap 12 mmol/L BUN 13 (7-17) mg/dL Creatinine 0.30 L (0.52-1.04) mg/dL Est GFR (MDRD) Af Amer >60 (>60 ml/min/1.73 sqM) Est GFR (MDRD) Non-Af >60 (>60 ml/min/1.73 sqM) Glucose 90 (74-99) mg/dL Plasma Lactic Acid Jabier 1.1 (0.7-2.0) mmol/L Calcium 8.9 (8.4-10.2) mg/dL Total Bilirubin 0.3 (0.2-1.3) mg/dL AST 21 (14-36) U/L ALT 38 (9-52) U/L Alkaline Phosphatase 149 H (38-126) U/L Total Protein 7.8 (6.3-8.2) g/dL Albumin 4.0 (3.5-5.0) g/dL Urine Color Urine Appearance (Clear) Urine pH (5.0-8.0) Ur Specific [place] (1.001-1.035) Urine Protein (Negative) Urine Glucose (UA) (Negative) Urine Ketones (Negative) Urine Blood (Negative) Urine Nitrite (Negative) Urine Bilirubin (Negative) Urine Urobilinogen (<2.0) mg/dL Ur Leukocyte Esterase (Negative) Ur Squamous Epith Cells (0-4) /hpf Amorphous Sediment (None) /hpf Disposition Clinical Impression: Non-productive cough Disposition: HOME SELF-CARE Instructions: Acute Cough (ED) Referrals: Avery Casarez MD [Primary Care Provider] - 1-2 days Time of Disposition: 20:11
[2017-01-03 18:41] VITALS: TEMP 99.5
--- NOTE | 2017-01-03 18:53 | XR ---
EXAMINATION TYPE: XR chest 1V portable DATE OF EXAM: 01/03/2017 COMPARISON: 12/02/2016 HISTORY: Fever TECHNIQUE: Single frontal view of the chest is obtained. FINDINGS: Exam is limited slightly by rotation. Lungs appear clear of consolidation. There is no sig n of pleural effusion. There are rods stabilizing the scoliotic deformity of the thoracolumbar spine. Tracheostomy tube is noted. IMPRESSION: Limited exam. No active cardiopulmonary disease. No change compared to old exam.
[2017-01-03 18:54] LABS: Amorphous Sediment,Urine Few /hpf; Appearance,Urine Turbid (Clear); Bilirubin,Urine Negative (Negative); Glucose,Urine (UA) Negative (Negative); Ketones,Urine Negative (Negative); Leukocyte Esterase,Urine Negative (Negative); Nitrite,Urine Negative (Negative); PH, Urine 7.5 (5.0-8.0); Particle Count 15302; Protein,Urine Negative (Negative); Specific Gravity,Urine 1.012 (1.001-1.035); Squamous Epithelial Cell,Urine 3 /hpf (0-4); UA Billing (MACRO vs. MICRO) MICRO; Urobilinogen,Urine <2.0 mg/dL (<2.0)
[2017-01-03 19:38] LABS: ALT 38 U/L (9-52); AST 21 U/L (14-36); Alkaline Phosphatase 149 U/L (38-126); Anion Gap 12 mmol/L; Blood Urea Nitrogen 13 mg/dL (7-17); Calcium 8.9 mg/dL (8.4-10.2); Carbon Dioxide 21 mmol/L (22-30); Chloride 103 mmol/L (98-107); Glucose 90 mg/dL (74-99); Non-African American GFR(MDRD) >60 (>60 ml/min/1.73 sqM); Potassium 4.3 mmol/L (3.5-5.1); Sodium 136 mmol/L (137-145); Total Bilirubin 0.3 mg/dL (0.2-1.3); Total Protein 7.8 g/dL (6.3-8.2)
[2017-01-03 19:49] LABS: Anisocytosis Slight; Basophils % (A) 1 %; CH 27.8; CHCM 32.2; Eosinophils # (A) 0.2 k/uL (0-0.7); Eosinophils % (A) 4 %; HCT 39.9 % (34.0-46.0); HDW 2.91; HGB 12.2 gm/dL (11.4-16.0); Hypochromasia Slight; Luc # (Auto) 0.15; Luc % (Auto) 3; Lymphocytes # (A) 1.4 k/uL (1.0-4.8); Lymphocytes % (A) 29 %; MCH 26.6 pg (25.0-35.0); MCHC 30.6 g/dL (31.0-37.0); MCV 86.9 fL (80.0-100.0); Mean Platelet Volume 9.9; Monocytes # (A) 0.3 k/uL (0-1.0); Monocytes % (A) 7 %; Neutrophils # (A) 2.8 k/uL (1.3-7.7); Neutrophils % (A) 57 %; RBC 4.59 m/uL (3.80-5.40); RDW 16.4 % (11.5-15.5); WBC 4.9 k/uL (3.8-10.6); WBC (Perox) 4.95
[2017-01-03 20:05] LABS: INR 1.1 (<1.2); Partial Thromboplastin Time 24.2 sec (22.0-30.0); Prothrombin Time 10.8 sec (9.0-12.0)
[2017-01-03 20:51] VITALS: BP 136/82; PULSE 89; RESP 22
== END 2017-01-03 20:51 | disposition home or self-care (01) ==
LOC: EC 18:07
DX: R05 Cough (principal); R06.02 Shortness of breath; G80.9 Cerebral palsy, unspecified; J45.909 Unspecified asthma, uncomplicated; G40.909 Epilepsy, unspecified, not intractable, without status epilepticus; Z93.0 Tracheostomy status; Z86.14 Personal history of Methicillin resistant Staphylococcus aureus infection; Z79.1 Long term (current) use of non-steroidal anti-inflammatories (NSAID); Z79.51 Long term (current) use of inhaled steroids; Z79.899 Other long term (current) drug therapy
CPT/HCPCS: 36415; 71010; 80053; 81001; 83605; 85025; 85610; 85730; 87040; 87086; 93005; 99285

== ENCOUNTER 2017-05-07 14:27 | Inpatient (IN) | payer MEDICARE, OTHER ==
--- NOTE | 2017-05-07 15:30 | XR ---
EXAMINATION TYPE: XR chest 2V DATE OF EXAM: 05/07/2017 COMPARISON: 01/23/2017 HISTORY: Cough TECHNIQUE: Frontal and lateral views of the chest are obtained. FINDINGS: Lung volumes are diminished. Tracheostomy tube is in place. Patchy density left infrahilar region may reflect underlying infiltrate. Progress studies are advised . Pandey rods thoracolumbar spine. IMPRESSION: 1. Left lower lobe infiltrate difficult to exclude.
[2017-05-07] MEDS ORDERED: cefTRIAXone IN SWFI 1,000 MG/10 ML SYRINGE IVP STA (15:37)
[2017-05-07] MEDS ORDERED: PNEUMONIA PROTOCOL UTILIZED 1 EACH MISC PO PRN ×2 (15:37→18:36)
[2017-05-07] MEDS ORDERED: AZITHROMYCIN 500 MG in SODIUM CHLORIDE 0.9% 250 ML IVPB STA (15:37)
--- NOTE | 2017-05-07 15:45 | ED ---
General Adult HPI - General Chief complaint: Recheck/Abnormal Lab/Rx Stated complaint: Feeding tube broke off Time Seen by Provider: 05/07/17 14:50 Source: EMS, RN notes reviewed Mode of arrival: EMS Limitations: language barrier, physical limitation - History of Present Illness Initial comments: 37-year-old female presents emergency Department with concern for PEG tube malfunction as well as concern for pneumonia. The patient has had a cloudy blood-tinged sputum for the past day or so. They deny any fever. She does have a long history of pneumonias in the past. They state they also checked her PEG tube that did appear to be choking to the end. At this time there is concerned because of the PEG tube they're unable to feed the patient is unable to give her antibiotics at they currently are treated for UTI for as well as well as their concern for pneumonia so they sent her in to be evaluated. His been no vomiting. No diarrhea. - Related Data Home Medications Medication Instructions Recorded Confirmed Albuterol Nebulized [Ventolin 2.5 mg INHALATION 06/06/16 05/07/17 Nebulized] RT-QID@07,12,16,21 Baclofen [Lioresal] 20 mg PEG/G-TUBE TID@0800,1600,209906/06/16 05/07/17 Diazepam [Diastat] 20 mg RECTAL Q5M PRN 06/06/16 05/07/17 Montelukast Sodium [Singulair] 10 mg PEG/G-TUBE HS 06/06/16 05/07/17 levETIRAcetam 1,000 mg PEG/G-TUBE BID@0800,209906/06/16 05/07/17 Bisacodyl [Dulcolax] 10 mg RECTAL DAILY PRN 11/30/16 05/07/17 Budesonide [Pulmicort] 0.5 mg INHALATION RT-BID@0800,209911/30/16 05/07/17 Chlorhexidine Gluconate [Peridex] 1 applic MUCOUS MEM BID@0800,209911/30/16 Nystatin 100,000 Unit/gm Powd 1 applic TOPICAL BID@0800,209911/30/16 05/07/17 [Mycostatin Powder] Polyethylene Glycol 3350 [Miralax] 9 gm PEG/G-TUBE DAILY@0800 11/30/16 05/07/17 Triamcinolone 0.1% Lotion [Kenalog 1 applic TOPICAL BID@0800,2100 11/30/1605/07 0.1% Lotion] Naproxen 375 mg PEG/G-TUBE DAILY@0800 01/03/17 05/07/17 carBAMazepine [carBAMazepine Susp] 400 mg PEG/G-TUBE 01/03/17 05/07/17 TID@0800,1600,2100 Replete Very High Protein 56 ml PEG/G-TUBE Q1H 01/23/17 05/07/17 Acetaminophen Oral Susp [Tylenol 10 - 30 ml PEG/G-TUBE Q4H PRN 05/07/17 05/07/17 Oral Susp] Metoprolol Tartrate [Lopressor] 25 mg PEG/G-TUBE BID 05/07/17 05/07/17 Morphine Sulf Gabriella 10mg/5ml 20 mg PO Q6H PRN 05/07/17 05/07/17 Nitrofurantoin Macrocrystal 100 mg PEG/G-TUBE BID 05/07/17 05/07/17 [Macrodantin] Urinary Pain Tab 95 mg PO TID 05/07/17 05/07/17 Allergies Allergy/AdvReac Type Severity Reaction Status Date / Time levofloxacin [From Levaquin] Allergy Severe Seizure Verified 05/07/17 14:38 Review of Systems ROS Statement: Those systems with pertinent positive or pertinent negative responses have been documented in the HPI. ROS Other: All systems not noted in ROS Statement are negative. Past Medical History Past Medical History: Asthma, Musculoskeletal Disorder, Seizure Disorder Additional Past Medical History / Comment(s): Celebral palsy, mental retardation - non verbal, PEG tube, trach, seizures (last unknown), quadriplegic , non-ambulatory w/ wheelchair, transfers with lift - non-weight bearing, stool impactions, incontinent of urine and stool (wears depends). History of Any Multi-Drug Resistant Organisms: MRSA Date of last positivie culture/infection: 05/25/16 MDRO Source:: Abdomen Past Surgical History: Orthopedic Surgery Additional Past Surgical History / Comment(s): EGD, PEG tube, left hip bone removed, tracheostomy Past Anesthesia/Blood Transfusion Reactions: No Reported Reaction Past Psychological History: Unable to Obtain Smoking Status: Never smoker Past Alcohol Use History: None Reported Past Drug Use History: None Reported - Past Family History Mother Family Medical History: Unable to Obtain Additional Family Medical History / Comment(s): No history - at [facility]. General Exam Limitations: language barrier, physical limitation Head exam: Present: atraumatic, normocephalic, normal inspection Neck exam: Absent: tenderness Respiratory exam: Present: wheezes Cardiovascular Exam: Present: regular rate, normal rhythm, normal heart sounds. Absent: systolic murmur, diastolic murmur, rubs, gallop, clicks GI/Abdominal exam: Present: soft, normal bowel sounds. Absent: distended, tenderness, guarding, rebound, rigid Neurological exam: Present: altered Psychiatric exam: Present: normal affect, normal mood Skin exam: Present: warm, dry, intact, normal color. Absent: rash Course Vital Signs 05/07/17 05/07/17 14:33 18:26 Temperature 98.1 F Pulse Rate 87 93 Respiratory 20 18 Rate Blood Pressure 91/63 107/54 O2 Sat by Pulse 93 L 100 Oximetry Medical Decision Making - Medical Decision Making 37-year-old female presents for a bout a PEG tube as well as what appears the left lower lobe pneumonia. This and we will start patient antibiotics. At this time we will admit the patient for continued care. Patient is in agreement with this plan all questions have been answered. Patient will be admitted. - Lab Data Lab Results 05/07/17 Range/Units 17:55 Urine Color Dark Yellow Urine Appearance Clear (Clear) Urine pH 8.0 (5.0-8.0) Ur Specific [place] 1.010 (1.001-1.035) Urine Protein Negative (Negative) Urine Glucose (UA) Negative (Negative) Urine Ketones Negative (Negative) Urine Blood Negative (Negative) Urine Nitrite Positive H (Negative) Urine Bilirubin Negative (Negative) Urine Urobilinogen <2.0 (<2.0) mg/dL Ur Leukocyte Esterase Negative (Negative) Urine WBC 1 (0-5) /hpf Ur Squamous Epith Cells 8 H (0-4) /hpf Amorphous Sediment Rare H (None) /hpf Urine Bacteria Occasional H (None) /hpf Disposition Clinical Impression: Cerebral palsy, Debilitated patient, Left lower lobe pneumonia, PEG tube malfunction, UTI (urinary tract infection) Disposition: ADMITTED IP TO THIS HOSP Condition: Stable Referrals: Avery Casarez MD [Primary Care Provider] - 1-2 days Decision Date: 05/07/17 Decision Time: 18:35
[2017-05-07 18:18] LABS: Amorphous Sediment,Urine Rare /hpf; Appearance,Urine Clear (Clear); Bacteria,Urine Occasional /hpf; Bilirubin,Urine Negative (Negative); Blood,Urine Negative (Negative); Color,Urine Dark Yellow; Glucose,Urine (UA) Negative (Negative); Ketones,Urine Negative (Negative); Leukocyte Esterase,Urine Negative (Negative); Nitrite,Urine Positive (Negative); Protein,Urine Negative (Negative); Squamous Epithelial Cell,Urine 8 /hpf (0-4); Urobilinogen,Urine <2.0 mg/dL (<2.0); WBC,Urine 1 /hpf (0-5)
[2017-05-07 18:29] LABS: Basophils % (A) 0 %; Eosinophils # (A) 0.3 k/uL (0-0.7); Eosinophils % (A) 4 %; HCT 38.3 % (34.0-46.0); HGB 11.5 gm/dL (11.4-16.0); Hypochromasia Slight; Lymphocytes # (A) 1.6 k/uL (1.0-4.8); Lymphocytes % (A) 23 %; MCHC 29.9 g/dL (31.0-37.0); MCV 90.3 fL (80.0-100.0); Monocytes # (A) 0.2 k/uL (0-1.0); Monocytes % (A) 4 %; Neutrophils # (A) 4.6 k/uL (1.3-7.7); Neutrophils % (A) 67 %; Platelet Count 226 k/uL (150-450); RBC 4.25 m/uL (3.80-5.40); RDW 15.7 % (11.5-15.5); WBC 6.8 k/uL (3.8-10.6)
[2017-05-07] MEDS ORDERED: DIAZEPAM 20 MG RECTAL PRN (18:37)
[2017-05-07] MEDS ORDERED: BISACODYL 10 MG SUPP RECTAL PRN (18:37)
[2017-05-07] MEDS ORDERED: ACETAMINOPHEN ORAL SUSP 160 MG/5 ML CUP PEG/G-TUBE PRN (18:37)
[2017-05-07] MEDS ORDERED: MORPHINE ORAL SOLN 10 MG/5 ML CUP PEG/G-TUBE PRN (18:37)
[2017-05-07] MEDS ORDERED: [UNRECOGNIZED DRUG - MIXTURE] PEG/G-TUBE SCH (18:45)
[2017-05-07 18:49] LABS: ALT 159 U/L (9-52); AST 166 U/L (14-36); Albumin 3.7 g/dL (3.5-5.0); Alkaline Phosphatase 121 U/L (38-126); Anion Gap 12 mmol/L; Blood Urea Nitrogen 7 mg/dL (7-17); Calcium 9.2 mg/dL (8.4-10.2); Carbon Dioxide 24 mmol/L (22-30); Chloride 103 mmol/L (98-107); Glucose 98 mg/dL (74-99); Potassium 3.9 mmol/L (3.5-5.1); Sodium 139 mmol/L (137-145); Total Bilirubin 0.3 mg/dL (0.2-1.3); Total Protein 7.2 g/dL (6.3-8.2)
[2017-05-07] MEDS: BUDESONIDE 0.5 MG/2 ML NEBU INHALATION SCH (20:18)
[2017-05-07] MEDS ORDERED: levETIRAcetam ORAL SOLN 500 MG/5 ML CUP PEG/G-TUBE SCH (21:00)
[2017-05-07] MEDS ORDERED: MONTELUKAST 10 MG TAB PEG/G-TUBE SCH (21:00)
[2017-05-07] MEDS ORDERED: [UNRECOGNIZED DRUG - OTHER] PO SCH (22:00)
--- NOTE | 2017-05-07 22:04 | HP ---
HISTORY AND PHYSICAL DATE OF ADMISSION: 05/07/2017 PRESENTING COMPLAINT: PEG tube malfunction. HISTORY OF PRESENTING COMPLAINT: This is a patient who follows with visiting physician, Dr. Casarez. The patient lives at [facility] and has a legal guardian, Deana Beck. The patient has cerebral palsy with quadriplegia with contracted limbs. The patient has a chronic tracheostomy and a PEG tube for feeding. The patient has presented that the PEG tube is malfunctioning, unable to get her feeding. The patient is doubly incontinent and has diapers. The patient has continuous feeding. The patient herself does not communicate. REVIEW OF SYSTEMS: Cannot get, as the patient is nonverbal. PAST MEDICAL HISTORY: Cerebral palsy, quadriplegia, doubly incontinent, seizures, asthma, tracheostomy, PEG tube feeding. PAST SURGICAL HISTORY: Left hip bone removed, tracheostomy and PEG tube. SOCIAL HISTORY: No history of smoking or alcohol. Lives at [facility]. Patient's legal guardian is Deana Beck. FAMILY HISTORY: Patient cannot tell. HOME MEDICATIONS: 1. Keppra 1000 mg through PEG tube b.i.d. 2. Carbamazepine suspension 500 mg through PEG tube t.i.d. 3. Urinary pain tablet 95 mg t.i.d. 4. Triamcinolone 0.1% topical lotion b.i.d. 5. Replete very high protein 56 mL through PEG tube every hour. 6. MiraLAX 9 g daily. 7. Mycostatin powder topical b.i.d. 8. Macrodantin 100 mg b.i.d. 9. Naproxen 375 PEG tube daily. 10.Morphine sulfate 10 mg per 5 cc at 20 mg every 6 hours p.r.n. Singulair per PEG q.h.s. 11.Lopressor 25 through PEG tube b.i.d. 12.Valium 20 mg rectal q.5h p.r.n. 13.Chlorhexidine topical b.i.d. 14.Pulmicort 0.5 nebulizer b.i.d. 15.Dulcolax 10 mg rectal daily p.r.n. 16.Baclofen 20 mg through PEG tube t.i.d. 17.Ventolin 2.5 q.i.d. 18.Tylenol 10-30 mL PEG tube q.4h p.r.n. ALLERGIES: To LEVAQUIN. EXAMINATION: Temperature 98.1, pulse 87, respirations 20, blood pressure 92/63, pulse ox 93% on room air/ GENERAL APPEARANCE: Lying in bed, awake, looking up. Limbs are contracted. EYES: Pupils are equal. Conjunctivae are normal. HEENT: External nose and ears normal. Oral cavity: Dry mucous membranes. NECK: Short, tracheostomy in place. Clear secretions are present. JVD unable to assess. RESPIRATORY: Effort increased. LUNGS: Clear. CARDIOVASCULAR: First and second sounds normal. No edema. ABDOMEN: Soft, nontender. There is a PEG tube in place. LYMPHATIC: No lymph node palpable in neck or axillae. PSYCHIATRY: Patient is nonverbal. NEUROLOGICAL: All 4 limbs are contracted. Sensation grossly preserved. INVESTIGATION: White count 6.8, hemoglobin 11.5. Potassium 3.9, BUN 7, creatinine 0.30. ASSESSMENT: 1. Admitted for malfunctioning percutaneous endoscopic gastrostomy tube. 2. Chronic percutaneous endoscopic gastrostomy tube feeding. 3. Chronic tracheostomy tube. 4. Intermittent asthma. 5. Seizure disorder. 6. Cerebral palsy causing quadriplegia. 7. Doubly incontinent. 8. Chronic medical debility. PLAN: GI Dr. Tamayo was consulted for placement of a PEG tube. The patient can get some IV fluids going. In the meantime, will change the patient's Keppra to IV and carbamazepine was to be held off. No family member is present. MMODL / IJN: [id number] /
[2017-05-07] MEDS: METOPROLOL TARTRATE 25 MG TAB PEG/G-TUBE SCH ×2 (22:36→22:39)
[2017-05-07] MEDS: BACLOFEN 10 MG TAB PEG/G-TUBE SCH (22:36)
[2017-05-07] MEDS: SODIUM CHLORIDE 0.9% 1,000 ML IV SCH (22:36)
[2017-05-07] MEDS: carBAMazepine 200 MG TAB PEG/G-TUBE SCH (22:36)
[2017-05-07] MEDS: TRIAMCINOLONE 0.1% CREAM 80 GM TUBE TOPICAL SCH (22:37)
[2017-05-07] MEDS: CHLORHEXIDINE GLUCONATE 15 ML CUP MUCOUS MEM SCH (22:37)
[2017-05-07] MEDS: NYSTATIN 100,000 UNIT/GM POWD 15 GM TOPICAL SCH (22:37)
[2017-05-07] MEDS: levETIRAcetam IV 1,000 MG in SALINE 1 100ML.BAG IVPB SCH (23:54)
[2017-05-08] MEDS ORDERED: POLYETHYLENE GLYCOL 3350 17 GM POWD.PACK PO SCH (08:00)
[2017-05-08] MEDS ORDERED: NAPROXEN 250 MG TAB PEG/G-TUBE SCH (08:00)
[2017-05-08] MEDS ORDERED: ENOXAPARIN 40 MG/0.4 ML SYRINGE SQ SCH (09:00)
[2017-05-08] MEDS ORDERED: cefTRIAXone IN SWFI 1,000 MG/10 ML SYRINGE IVP SCH (09:00)
[2017-05-08 09:09] VITALS: BMI 27.4
[2017-05-08] MEDS: BUDESONIDE 0.5 MG/2 ML NEBU INHALATION SCH (09:39)
--- NOTE | 2017-05-08 10:14 | P.CONS ---
History of Present Illness - Reason for Consult Consult date: 05/08/17 PEG tube malfunction Requesting physician: Arcadio Zepeda - History of Present Illness History obtained from nursing staff and medical records patient is noncommunicative. 37-year-old noncommunicative female resident at [facility] with cerebral palsy quadriplegia with contracted limbs. Patient has a chronic tracheostomy and PEG tube for feeding. PEG was replaced in May 2016. Patient presented to the ER yesterday with PEG tube malfunction and replaced by the emergency room staff. Nursing staff reports no drainage bleeding redness around PEG site since replacement. X-rays have been ordered this morning to confirm placement before to feeds and medications are administered. White count 6.8. Hemoglobin 11.5. Afebrile. Review of Systems Obtained from medical records nursing staff Constitutional: No reports of fever, chills, sweats, weight gain, or loss. HEENT: No history of Negative for migraines, blurred vision or loss, earaches, drainage, tinnitus, oral mucosal lesions, dysphagia, or odynophagia. CARDIAC: No history of chest pain, arrhythmias, or palpitation. RESPIRATORY: History of asthma. GI: See HPI for pertinent findings. : Negative for hematuria, urgency, frequency, polyuria, or dysuria. GYNc: Denies possibility of . Negative vaginal discharge. MUSCULOSKELETAL: Cerebral palsy contracted limbs nonambulatory. NEUROLOGIC: History of seizures. Negative for stroke or TIA. ENDOCRINE: Negative for thyroid problems. SKIN: Negative for rash or itching. PSYCHIATRIC: Negative history for depression and anxiety ROS unobtainable: due to mental status Past Medical History Past Medical History: Asthma, Musculoskeletal Disorder, Seizure Disorder Additional Past Medical History / Comment(s): Celebral palsy, mental retardation - non verbal, PEG tube, trach, seizures (last unknown), quadriplegic , non-ambulatory w/ wheelchair, transfers with lift - non-weight bearing, stool impactions, incontinent of urine and stool (wears depends). History of Any Multi-Drug Resistant Organisms: MRSA Year Discovered:: 05/25/16 MDRO Source:: Abdomen Past Surgical History: Orthopedic Surgery Additional Past Surgical History / Comment(s): EGD, PEG tube, left hip bone removed, tracheostomy Past Anesthesia/Blood Transfusion Reactions: No Reported Reaction Past Psychological History: Unable to Obtain Smoking Status: Never smoker Past Alcohol Use History: None Reported Past Drug Use History: None Reported - Past Family History Mother Family Medical History: Unable to Obtain Additional Family Medical History / Comment(s): No history - at [facility]. Medications and Allergies Home Medications Medication Instructions Recorded Confirmed Type Albuterol Nebulized [Ventolin 2.5 mg INHALATION 06/06/16 05/07/17 History Nebulized] RT-QID@07,12,16,21 Baclofen [Lioresal] 20 mg PEG/G-TUBE TID@0800,1600,209906/06/16 05/07/17 History Diazepam [Diastat] 20 mg RECTAL Q5M PRN 06/06/16 05/07/17 History Montelukast Sodium [Singulair] 10 mg PEG/G-TUBE HS 06/06/16 05/07/17 History levETIRAcetam 1,000 mg PEG/G-TUBE BID@0800,2100 06/06/16 05/07/17 History Bisacodyl [Dulcolax] 10 mg RECTAL DAILY PRN 11/30/16 05/07/17 History Budesonide [Pulmicort] 0.5 mg INHALATION RT-BID@0800,2100 11/30/16 05/07/17 History Chlorhexidine Gluconate [Peridex] 1 applic MUCOUS MEM BID@0800,209911/30/16 History Nystatin 100,000 Unit/gm Powd 1 applic TOPICAL BID@0800,2100 11/30/16 05/07/17 History [Mycostatin Powder] Polyethylene Glycol 3350 [Miralax] 9 gm PEG/G-TUBE DAILY@0800 11/30/16 05/07/17 History Triamcinolone 0.1% Lotion [Kenalog 1 applic TOPICAL BID@0800,2100 11/30/1605/07 History 0.1% Lotion] Naproxen 375 mg PEG/G-TUBE DAILY@0800 01/03/17 05/07/17 History carBAMazepine [carBAMazepine Susp] 400 mg PEG/G-TUBE 01/03/17 05/07/17 History TID@0800,1600,2100 Replete Very High Protein 56 ml PEG/G-TUBE Q1H 01/23/17 05/07/17 History Acetaminophen Oral Susp [Tylenol 10 - 30 ml PEG/G-TUBE Q4H PRN 05/07/17 History Oral Susp] Metoprolol Tartrate [Lopressor] 25 mg PEG/G-TUBE BID 05/07/17 05/07/17 History Morphine Sulf Gabriella 10mg/5ml 20 mg PO Q6H PRN 05/07/17 05/07/17 History Nitrofurantoin Macrocrystal 100 mg PEG/G-TUBE BID 05/07/17 05/07/17 History [Macrodantin] Urinary Pain Tab 95 mg PO TID 05/07/17 05/07/17 History Allergies Allergy/AdvReac Type Severity Reaction Status Date / Time levofloxacin [From Levaquin] Allergy Severe Seizure Verified 05/07/17 14:38 Physical Exam Vitals: Vital Signs Temp Pulse Pulse Resp BP BP BP 05/08/17 09:54 92 05/08/17 09:39 90 18 05/08/17 07:00 97.0 F L 93 20 127/77 05/07/17 23:00 101 H 18 122/69 05/07/17 21:36 100 18 96/63 05/07/17 20:28 93 22 05/07/17 20:18 90 22 05/07/17 18:26 93 18 107/54 05/07/17 14:33 98.1 F 87 20 91/63 Pulse Ox 05/08/17 09:54 05/08/17 09:39 05/08/17 07:00 92 L 05/07/17 23:00 95 05/07/17 21:36 94 L 05/07/17 20:28 05/07/17 20:18 05/07/17 18:26 100 05/07/17 14:33 93 L Intake and Output 05/07/17 05/08/17 05/08/17 22:59 06:59 14:59 Other: Voiding Method Diaper Incontinent # Voids 1 2 # Bowel Movements 1 Weight 40.823 kg Patient Weight 05/09/17 06:59 Weight 40.823 kg General appearance: The patient is awake and no acute distress noncommunicative. HET: Head is normocephalic and atraumatic. Pupils are equal and reactive. Oropharynx is clear without lesions. Neck: Supple without lymphadenopathy. Trachea midline. Heart: S1 S2. Regular rate and rhythm. Lungs: Fine crackles in bases site diminishment bilaterally.. Abdomen: Soft, nontender, nondistended with bowel sounds. PEG tube without drainage bleeding or redness. No peritoneal signs. No palpable organomegaly or masses. Extremities: Contracted limbs Results CBC & Chem 7: 05/07/17 18:21 05/07/17 18:21 Labs: Abnormal Lab Results - Last 24 Hours (Table) 05/07/17 05/07/17 05/07/17 Range/Units 17:55 18:21 18:21 MCHC 29.9 L (31.0-37.0) g/dL RDW 15.7 H (11.5-15.5) % Creatinine 0.30 L (0.52-1.04) mg/dL Plasma Lactic Acid Jabier (0.7-2.0) mmol/L AST 166 H (14-36) U/L ALT 159 H (9-52) U/L Urine Nitrite Positive H (Negative) Ur Squamous Epith Cells 8 H (0-4) /hpf Amorphous Sediment Rare H (None) /hpf Urine Bacteria Occasional H (None) /hpf 05/07/17 Range/Units 18:21 MCHC (31.0-37.0) g/dL RDW (11.5-15.5) % Creatinine (0.52-1.04) mg/dL Plasma Lactic Acid Jabier 0.6 L (0.7-2.0) mmol/L AST (14-36) U/L ALT (9-52) U/L Urine Nitrite (Negative) Ur Squamous Epith Cells (0-4) /hpf Amorphous Sediment (None) /hpf Urine Bacteria (None) /hpf Microbiology - Last 24 Hours (Table) 05/07/17 17:55 Urine Culture - Preliminary Urine,Catheterized Assessment and Plan (1) PEG tube malfunction Current Visit: Yes Status: Acute Code(s): K94.23 - GASTROSTOMY MALFUNCTION SNOMED Code(s): 990043113 (2) Tracheostomy in place Current Visit: Yes Status: Chronic Code(s): Z93.0 - TRACHEOSTOMY STATUS SNOMED Code(s): 562526951 (3) Cerebral palsy Current Visit: Yes Status: Chronic Code(s): G80.9 - CEREBRAL PALSY, UNSPECIFIED SNOMED Code(s): 862732433 Plan: 1. PEG tube was then replaced by emergency room staff will await x-rays for placement is confirmed proceed with tube feeds and medications as previously advised. Discharge per medicine. We'll follow as needed. Thank you for this kind referral and the opportunity to participate in the care of your patient. This consultation was discussed with Dr. Prado. The impression and plan of care have been directed as dictated.
--- NOTE | 2017-05-08 10:40 | XR ---
EXAMINATION TYPE: XR KUB portable DATE OF EXAM: 05/08/2017 COMPARISON: NONE HISTORY: PEG tube placement TECHNIQUE: One view submitted FINDINGS: Contrast is seen within the stomach and small bowel. PEG tube noted overlying the stomach. 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 Overall bowel gas pattern is nonspecific. Lung bases clear. IMPRESSION: Contrast appears to be contained within the stomach and small bowel.
[2017-05-08] MEDS: BACLOFEN 10 MG TAB PEG/G-TUBE SCH (10:50)
[2017-05-08] MEDS: carBAMazepine 200 MG TAB PEG/G-TUBE SCH (10:52)
[2017-05-08] MEDS: CHLORHEXIDINE GLUCONATE 15 ML CUP MUCOUS MEM SCH (10:52)
[2017-05-08] MEDS: NYSTATIN 100,000 UNIT/GM POWD 15 GM TOPICAL SCH (10:53)
[2017-05-08] MEDS: TRIAMCINOLONE 0.1% CREAM 80 GM TUBE TOPICAL SCH (10:55)
[2017-05-08] MEDS: levETIRAcetam IV 1,000 MG in SALINE 1 100ML.BAG IVPB SCH (10:55)
[2017-05-08] MEDS: METOPROLOL TARTRATE 25 MG TAB PEG/G-TUBE SCH (10:55)
[2017-05-08] MEDS: SODIUM CHLORIDE 0.9% 1,000 ML IV SCH (10:56)
[2017-05-08] MEDS ORDERED: AZITHROMYCIN 500 MG TAB PO SCH (12:00)
[2017-05-08 15:38] VITALS: BP 126/70; PULSE 80; RESP 20; TEMP 96.8
--- NOTE | 2017-05-08 19:59 | DS ---
DISCHARGE SUMMARY DATE OF ADMISSION: 05/07/2017. DATE OF DISCHARGE: 05/08/2017 FINAL DIAGNOSES: 1. Malfunctioning percutaneous endoscopic gastrostomy tube, now replaced. 2. Chronic tracheostomy tube. 3. Intermittent asthma. 4. Seizure disorder. 5. Cerebral palsy causing quadriplegia. 6. Double bowel and urine incontinence. 7. Chronic medical debility. HOSPITAL COURSE: This patient follows with [facility], resident of the [facility], legal guardian Deana Beck, has quadriplegia with contracted limbs. Has a PEG tube for feeding and tracheostomy, presented with malfunctioning PEG tube. This was changed in the ER. Seen by Dr. Yogi Prado. The patient is tolerating the tube well. Patient had a PEG gram that came back okay. There is no white count and there is no fever. No evidence of infection. DISCHARGE MEDICATIONS: 1. Ventolin 2.5 q.i.d. 2. Baclofen 20 mg t.i.d. 3. Diazepam 20 mg breakthrough q.5h p.r.n. 4. Singulair 10 mg at bedtime. 5. Keppra 1000 mg b.i.d. 6. Dulcolax 10 mg rectal daily. 7. Pulmicort 0.5 inhalation b.i.d. 8. Peridex to mucous membranes b.i.d. 9. Mycostatin 1 topical b.i.d. 10.MiraLAX 9 g through PEG tube daily. 11.Kenalog 0.1% application topical b.i.d. 12.Naproxen 375 mg through PEG tube daily. 13.Carbamazepine 400 mg t.i.d. 14. protein 56 mL PEG tube q.1. 15.Tylenol 10-30 mL through PEG tube q.4h p.r.n. 16.Lopressor 25 through PEG tube b.i.d. 17.Morphine 10 mg 5 mL 20 mg every 6 hours p.r.n. 18.Macrodantin 100 mg b.i.d. 19.Urinary pain tablets 95 mg p.o. t.i.d. EXAM: LUNGS: Fair air entry. Tracheostomy in place. The patient does not follow commands. Eyes are awake. DISPOSITION: [facility]. Follow up with visiting physician Dr. Casarez in 3 days at [facility]. PEG tube care to continue. MMODL / IJN: [id number] /
== END 2017-05-08 16:30 | disposition home health service (06) | DRG 393 ==
LOC: EC 14:27 → 5MS5E 18:18 → 4MS4W 19:46
PROVIDERS: ADMIT Hospitalist; ATTEND Hospitalist
PROC: 0D20XUZ Change Feeding Device in Upper Intestinal Tract, External Approach (ICD-10-PCS; principal; 2017-05-07)
DX: K94.23 Gastrostomy malfunction (principal); J18.9 Pneumonia, unspecified organism; G82.50 Quadriplegia, unspecified; N39.0 Urinary tract infection, site not specified; G40.909 Epilepsy, unspecified, not intractable, without status epilepticus; G80.8 Other cerebral palsy; J45.20 Mild intermittent asthma, uncomplicated; F79 Unspecified intellectual disabilities; R15.9 Full incontinence of feces; R32 Unspecified urinary incontinence; R63.3 Feeding difficulties; Z93.0 Tracheostomy status; Z79.899 Other long term (current) drug therapy; Z88.1 Allergy status to other antibiotic agents; Z86.14 Personal history of Methicillin resistant Staphylococcus aureus infection; Z99.3 Dependence on wheelchair
CPT/HCPCS: 36415; 71046; 74018; 80053; 81001; 83605; 85025; 87040; 87070; 87077; 87086; 87186; 87205; 94640; 96365; 96366; 96375; 99284

== ENCOUNTER 2017-06-28 19:37 | Inpatient (IN) | payer MEDICARE, OTHER ==
--- NOTE | 2017-06-28 20:51 | ED ---
URI HPI - General Chief Complaint: Upper Respiratory Infection Stated Complaint: Stoma issues Time Seen by Provider: 06/28/17 20:17 Source: patient, RN notes reviewed, old records reviewed Mode of arrival: EMS Limitations: language barrier, physical limitation - History of Present Illness Initial Comments: This patient is a 37-year-old female with a history of cerebral palsy, mental retardation. She is nonverbal. She has a PEG tube and trach a ostomy. She said history of seizures is a quadriplegic. Patient transfers with a lift. She was brought in by her caregiver due to an abnormal change in sputum color and production from her trach tube. They report that she's had no fevers. They state that the sputum colors normally yellowish green and is changed to appear similar to her PEG tube feedings. They state they've also noticed that her breathing was somewhat labored. Patient states that she's had normal bowel movements and has been passing urine without difficulty. She's had no known fevers that they're aware of. She's had history of multiple infections and pneumonias. - Related Data Home Medications Medication Instructions Recorded Confirmed Albuterol Nebulized [Ventolin 2.5 mg INHALATION RT-Q4H 06/06/16 06/28/17 Nebulized] Baclofen [Lioresal] 20 mg PEG/G-TUBE TID@0800,1600,209906/06/16 06/28/17 Diazepam [Diastat] 20 mg RECTAL Q5M PRN 06/06/16 06/28/17 Montelukast Sodium [Singulair] 10 mg PEG/G-TUBE HS@209906/06/16 06/28/17 levETIRAcetam 1,000 mg PEG/G-TUBE BID@0800,209906/06/16 06/28/17 Bisacodyl [Dulcolax] 10 mg RECTAL DAILY PRN 11/30/16 06/28/17 Budesonide [Pulmicort] 0.5 mg INHALATION RT-BID@0800,209911/30/16 06/28/17 Chlorhexidine Gluconate [Peridex] 1 applic MUCOUS MEM BID@0800,209911/30/1609/09 Nystatin 100,000 Unit/gm Powd 1 applic TOPICAL BID@0800,209911/30/16 06/28/17 [Mycostatin Powder] Polyethylene Glycol 3350 [Miralax] 9 gm PEG/G-TUBE DAILY@0800 11/30/16 06/28/17 Naproxen 375 mg PEG/G-TUBE DAILY@0800 01/03/17 06/28/17 carBAMazepine [carBAMazepine Susp] 400 mg PEG/G-TUBE 01/03/17 06/28/17 TID@0800,1600,2100 Acetaminophen Oral Susp [Tylenol] 320 - 960 mg PEG/G-TUBE Q4H PRN 05/07/1706/28 Metoprolol Tartrate [Lopressor] 25 mg PEG/G-TUBE BID@0800,2100 05/07/17 06/28/17 MORPHINE ORAL MANOHAR 2mg/mL [Morphine 20 mg PO Q6HR PRN 06/28/17 06/28/17 Oral Soln 2 MG/ML] Triamcinolone 0.1% Cream [Kenalog] 1 applicatio TOPICAL BID@0800,2100 06/28/17 06/28/17 Allergies Allergy/AdvReac Type Severity Reaction Status Date / Time levofloxacin [From Levaquin] Allergy Severe Seizure Verified 06/28/17 21:10 Review of Systems ROS Statement: Those systems with pertinent positive or pertinent negative responses have been documented in the HPI. ROS Other: All systems not noted in ROS Statement are negative. Past Medical History Past Medical History: Asthma, Musculoskeletal Disorder, Seizure Disorder Additional Past Medical History / Comment(s): Celebral palsy, mental retardation - non verbal, PEG tube, trach, seizures (last unknown), quadriplegic , non-ambulatory w/ wheelchair, transfers with lift - non-weight bearing, stool impactions, incontinent of urine and stool (wears depends). History of Any Multi-Drug Resistant Organisms: MRSA Date of last positivie culture/infection: 05/25/16 MDRO Source:: Abdomen\ MRSA in sputum Past Surgical History: Orthopedic Surgery Additional Past Surgical History / Comment(s): EGD, PEG tube, left hip bone removed, tracheostomy Past Anesthesia/Blood Transfusion Reactions: No Reported Reaction Past Psychological History: Unable to Obtain Smoking Status: Never smoker Past Alcohol Use History: None Reported Past Drug Use History: None Reported - Past Family History Mother Family Medical History: Unable to Obtain Additional Family Medical History / Comment(s): No history - at [facility] care. General Exam - General Exam Comments Initial Comments: 37-year-old female. Patient is nonverbal and unresponsive. History of cerebral palsy. Limitations: language barrier, physical limitation General appearance: alert, in no apparent distress Head exam: Present: atraumatic, normocephalic, normal inspection Eye exam: Present: normal appearance, PERRL, EOMI. Absent: scleral icterus, conjunctival injection, periorbital swelling ENT exam: Present: normal exam, mucous membranes moist, other (Tracheostomy tube noted. No significant sputum production noted at this site at this time.) Neck exam: Present: normal inspection. Absent: tenderness, meningismus, lymphadenopathy Respiratory exam: Present: wheezes, rhonchi. Absent: normal lung sounds bilaterally, respiratory distress, rales, stridor Cardiovascular Exam: Present: regular rate, normal rhythm, normal heart sounds. Absent: systolic murmur, diastolic murmur, rubs, gallop, clicks GI/Abdominal exam: Present: soft, normal bowel sounds. Absent: distended, tenderness, guarding, rebound, rigid Extremities exam: Present: normal inspection, full ROM, normal capillary refill. Absent: tenderness, pedal edema, joint swelling, calf tenderness Back exam: Present: normal inspection Neurological exam: Present: alert, oriented X3, CN II-XII intact Psychiatric exam: Present: normal affect, normal mood Skin exam: Present: warm, dry, intact, normal color. Absent: rash Course Vital Signs 06/28/17 06/28/17 06/28/17 19:41 20:23 22:12 Temperature 98.9 F Pulse Rate 87 89 82 Respiratory 18 18 18 Rate Blood Pressure 100/54 101/55 111/55 O2 Sat by Pulse 100 97 98 Oximetry 06/28/17 06/29/17 06/29/17 23:16 00:42 01:33 Temperature 99.1 F Pulse Rate 85 82 80 Respiratory 18 18 18 Rate Blood Pressure 103/60 102/66 120/58 O2 Sat by Pulse 99 100 97 Oximetry Medical Decision Making - Medical Decision Making 29-year-old female with history of cerebral palsy presents with abnormal sputum from her tracheostomy site. Caregiver reports she's also had some labored breathing. She's been having some wheezing and rhonchus lung sounds are noted. The caregiver does state that does seem be chronic but is getting aggressively worse. She is fed by PEG tube. Patient to take feels normal. Patient given IV fluids labwork obtained. Did take a long time to receive the blood work due to patient's poor vascular status. Patient was able to count is normal. At this time with the increased for infection and lung sounds I will put the patient on Rocephin to cover for for any developing pneumonia. Patient will get continued breathing treatments through the trach. Discussed with Dr. Emmett Levine the patient at this time. - Lab Data Result diagrams: 06/28/17 22:11 06/28/17 22:51 Lab Results 06/28/17 06/28/17 06/28/17 Range/Units 21:18 22:11 22:51 WBC 5.3 (3.8-10.6) k/uL RBC 4.81 (3.80-5.40) m/uL Hgb 13.5 (11.4-16.0) gm/dL Hct 39.7 (34.0-46.0) % MCV 82.6 D (80.0-100.0) fL MCH 28.0 (25.0-35.0) pg MCHC 33.9 (31.0-37.0) g/dL RDW 14.2 (11.5-15.5) % Plt Count (150-450) k/uL Neutrophils % 54 % Lymphocytes % 33 % Monocytes % 8 % Eosinophils % 2 % Basophils % 0 % Neutrophils # 2.9 (1.3-7.7) k/uL Lymphocytes # 1.8 (1.0-4.8) k/uL Monocytes # 0.4 (0-1.0) k/uL Eosinophils # 0.1 (0-0.7) k/uL Basophils # 0.0 (0-0.2) k/uL Manual Slide Review Performed PT 11.2 (9.0-12.0) sec INR 1.2 H (<1.2) APTT 25.0 (22.0-30.0) sec Sodium (137-145) mmol/L Potassium (3.5-5.1) mmol/L Chloride (98-107) mmol/L Carbon Dioxide (22-30) mmol/L Anion Gap mmol/L BUN (7-17) mg/dL Creatinine (0.52-1.04) mg/dL Est GFR (CKD-EPI)AfAm (>60 ml/min/1.73 sqM) Est GFR (CKD-EPI)NonAf (>60 ml/min/1.73 sqM) Glucose (74-99) mg/dL Plasma Lactic Acid Jabier (0.7-2.0) mmol/L Calcium (8.4-10.2) mg/dL Total Bilirubin (0.2-1.3) mg/dL AST (14-36) U/L ALT (9-52) U/L Alkaline Phosphatase (38-126) U/L NT-Pro-B Natriuret Pep pg/mL Total Protein (6.3-8.2) g/dL Albumin (3.5-5.0) g/dL Urine Color Dark Brown Urine Appearance Cloudy H (Clear) Urine pH 6.5 (5.0-8.0) Ur Specific Linden 1.029 (1.001-1.035) Urine Protein 1+ H (Negative) Urine Glucose (UA) Negative (Negative) Urine Ketones Trace H (Negative) Urine Blood Negative (Negative) Urine Nitrite Negative (Negative) Urine Bilirubin Negative (Negative) Urine Urobilinogen 3.0 (<2.0) mg/dL Ur Leukocyte Esterase Trace H (Negative) Urine RBC 10 H (0-5) /hpf Urine WBC 2 (0-5) /hpf Ur Squamous Epith Cells 12 H (0-4) /hpf Urine Bacteria Occasional H (None) /hpf Urine Mucus Many H (None) /hpf 06/28/17 06/28/17 06/28/17 Range/Units 22:51 22:51 22:51 WBC (3.8-10.6) k/uL RBC (3.80-5.40) m/uL Hgb (11.4-16.0) gm/dL Hct (34.0-46.0) % MCV (80.0-100.0) fL MCH (25.0-35.0) pg MCHC (31.0-37.0) g/dL RDW (11.5-15.5) % Plt Count (150-450) k/uL Neutrophils % % Lymphocytes % % Monocytes % % Eosinophils % % Basophils % % Neutrophils # (1.3-7.7) k/uL Lymphocytes # (1.0-4.8) k/uL Monocytes # (0-1.0) k/uL Eosinophils # (0-0.7) k/uL Basophils # (0-0.2) k/uL Manual Slide Review PT (9.0-12.0) sec INR (<1.2) APTT (22.0-30.0) sec Sodium 139 (137-145) mmol/L Potassium 4.0 (3.5-5.1) mmol/L Chloride 100 (98-107) mmol/L Carbon Dioxide 24 (22-30) mmol/L Anion Gap 15 mmol/L BUN 10 (7-17) mg/dL Creatinine 0.30 L (0.52-1.04) mg/dL Est GFR (CKD-EPI)AfAm >90 (>60 ml/min/1.73 sqM) Est GFR (CKD-EPI)NonAf >90 (>60 ml/min/1.73 sqM) Glucose 99 (74-99) mg/dL Plasma Lactic Acid Jabier 1.0 (0.7-2.0) mmol/L Calcium 9.2 (8.4-10.2) mg/dL Total Bilirubin 0.3 (0.2-1.3) mg/dL AST 36 (14-36) U/L ALT 52 (9-52) U/L Alkaline Phosphatase 105 (38-126) U/L NT-Pro-B Natriuret Pep 180 pg/mL Total Protein 7.6 (6.3-8.2) g/dL Albumin 4.0 (3.5-5.0) g/dL Urine Color Urine Appearance (Clear) Urine pH (5.0-8.0) Ur Specific Linden (1.001-1.035) Urine Protein (Negative) Urine Glucose (UA) (Negative) Urine Ketones (Negative) Urine Blood (Negative) Urine Nitrite (Negative) Urine Bilirubin (Negative) Urine Urobilinogen (<2.0) mg/dL Ur Leukocyte Esterase (Negative) Urine RBC (0-5) /hpf Urine WBC (0-5) /hpf Ur Squamous Epith Cells (0-4) /hpf Urine Bacteria (None) /hpf Urine Mucus (None) /hpf 06/28/17 23:53 EKG shows normal sinus rhythm, normal EKG noted. Ventricular rate of 85 beats.. Normal 1:30 milliseconds. QRS duration 72 ms. QT QTc is 344/409 ms no evidence of ST elevation or T-wave inversions. - Radiology Data Radiology results: report reviewed Chest x-ray shows lucency underneath the left hemidiaphragm requires upper radiograph to exclude pneumoperitoneum. By Dr. Master Lee. There is a fine reticular pattern of increased density throughout the lungs. Still wetting pulmonary vascular mild degree. The just mild interstitial phase pulmonary edema clinically corroborated. KUB shows evidence of constipation but no free air noted. Disposition Clinical Impression: Bronchitis, Tracheostomy dependence, Debilitated patient, Cerebral palsy Disposition: ADMITTED IP TO THIS HOSP Condition: Stable Time of Disposition: 00:12
[2017-06-28 21:46] LABS: Appearance,Urine Cloudy (Clear); Bacteria,Urine Occasional /hpf; Bilirubin,Urine Negative (Negative); Blood,Urine Negative (Negative); Color,Urine Dark Brown; Glucose,Urine (UA) Negative (Negative); Ketones,Urine Trace (Negative); Leukocyte Esterase,Urine Trace (Negative); Mucus,Urine Many /hpf; Nitrite,Urine Negative (Negative); PH, Urine 6.5 (5.0-8.0); Protein,Urine 1+ (Negative); RBC,Urine 10 /hpf (0-5); Specific Gravity,Urine 1.029 (1.001-1.035); Squamous Epithelial Cell,Urine 12 /hpf (0-4); WBC,Urine 2 /hpf (0-5)
--- NOTE | 2017-06-28 21:57 | XR ---
EXAMINATION: XR chest 1V DATE AND TIME: 06/28/2017 9:46 PM ORDERING PROVIDER: Maureen Rincon CLINICAL INDICATION: Pain TECHNIQUE: AP COMPARISON: 05/07/2017 DESCRIPTION: There is a fine reticular pattern of increased density throughout the lungs, silhouettin g the pulmonary vasculature to a mild degree. This suggests mild interstitial phase pulmonary edema i f clinically corroborated. Underneath the left hemidiaphragm and there is lucency, this likely represents air within the stomach , but repeat radiography is necessary to exclude pneumoperitoneum. IMPRESSION: LUCENCY UNDERNEATH LEFT HEMIDIAPHRAGM REQUIRES UPRIGHT RADIOGRAPH TO EXCLUDE PNEUMOPERITONEUM.
[2017-06-28 22:21] LABS: Basophils % (A) 0 %; Eosinophils # (A) 0.1 k/uL (0-0.7); Eosinophils % (A) 2 %; HCT 39.7 % (34.0-46.0); HGB 13.5 gm/dL (11.4-16.0); Lymphocytes # (A) 1.8 k/uL (1.0-4.8); Lymphocytes % (A) 33 %; MCHC 33.9 g/dL (31.0-37.0); Mean Platelet Volume 10.6; Monocytes # (A) 0.4 k/uL (0-1.0); Monocytes % (A) 8 %; Neutrophils # (A) 2.9 k/uL (1.3-7.7); Neutrophils % (A) 54 %; RBC 4.81 m/uL (3.80-5.40); RDW 14.2 % (11.5-15.5); WBC 5.3 k/uL (3.8-10.6)
[2017-06-28 22:22] LABS: MCV 82.6 fL (80.0-100.0)
[2017-06-28 23:10] LABS: INR 1.2 (<1.2); Prothrombin Time 11.2 sec (9.0-12.0)
[2017-06-28 23:11] LABS: ALT 52 U/L (9-52); AST 36 U/L (14-36); Alkaline Phosphatase 105 U/L (38-126); Anion Gap 15 mmol/L; Blood Urea Nitrogen 10 mg/dL (7-17); Calcium 9.2 mg/dL (8.4-10.2); Carbon Dioxide 24 mmol/L (22-30); Chloride 100 mmol/L (98-107); Glucose 99 mg/dL (74-99); Sodium 139 mmol/L (137-145); Total Bilirubin 0.3 mg/dL (0.2-1.3); Total Protein 7.6 g/dL (6.3-8.2)
[2017-06-28] MEDS: SODIUM CHLORIDE 0.9% 500 ML IV SCH (23:14)
--- NOTE | 2017-06-28 23:52 | XR ---
EXAMINATION TYPE: XR abdomen 2V DATE OF EXAM: 06/28/2017 COMPARISON: 05/08/2017 HISTORY: Abdominal pain TECHNIQUE: 2 views FINDINGS: There is some thoracolumbar dextroscoliosis. There are stabilizing rods on the left side. There is no sign of a pneumoperitoneum. There is retained fecal material throughout the colon. Lung b ases are clear of consolidation. IMPRESSION: There is evidence of some constipation neck is new compared to old exam. No free air.
[2017-06-29] MEDS ORDERED: cefTRIAXone IN SWFI 1,000 MG/10 ML SYRINGE IVP STA
[2017-06-29] MEDS ORDERED: IBUPROFEN 400 MG TAB PO PRN (00:13)
[2017-06-29] MEDS ORDERED: NALOXONE 0.4 MG/ML 1 ML VIAL IV PRN (00:13)
[2017-06-29] MEDS ORDERED: ONDANSETRON 4 MG/2 ML VIAL IVP PRN (00:13)
[2017-06-29] MEDS ORDERED: ACETAMINOPHEN TAB 325 MG TAB PO PRN (00:13)
[2017-06-29] MEDS ORDERED: BISACODYL 10 MG SUPP RECTAL PRN (00:18)
[2017-06-29] MEDS ORDERED: DIAZEPAM 20 MG RECTAL PRN (00:18)
[2017-06-29] MEDS ORDERED: MORPHINE ORAL SOLN 10 MG/5 ML CUP PO PRN (00:18)
[2017-06-29] MEDS: SODIUM CHLORIDE 0.9% 500 ML IV SCH ×2 (00:41→01:32)
[2017-06-29] MEDS ORDERED: 0.9% NACL WITH KCL 20 MEQ/L 1,000 ML IV SCH (01:30)
[2017-06-29 02:36] VITALS: BMI 27.1
[2017-06-29 02:39] VITALS: RESP 24
[2017-06-29] MEDS: SODIUM CHLORIDE 0.9% 1,000 ML IV SCH ×2 (02:46→18:11)
[2017-06-29] MEDS: ALBUTEROL NEBULIZED 2.5 MG/3 ML INHALATION SCH ×4 (03:39→15:56)
[2017-06-29] MEDS ORDERED: TRIAMCINOLONE 0.1% CREAM 80 GM TUBE TOPICAL SCH (08:00)
[2017-06-29] MEDS ORDERED: METOPROLOL TARTRATE 25 MG TAB PEG/G-TUBE SCH (08:00)
[2017-06-29] MEDS ORDERED: BUDESONIDE 0.5 MG/2 ML NEBU INHALATION SCH (08:00)
[2017-06-29] MEDS ORDERED: NYSTATIN 100,000 UNIT/GM POWD 15 GM TOPICAL SCH (08:00)
[2017-06-29] MEDS ORDERED: CHLORHEXIDINE GLUCONATE 15 ML CUP MUCOUS MEM SCH (08:00)
[2017-06-29] MEDS ORDERED: levETIRAcetam ORAL SOLN 500 MG/5 ML CUP PEG/G-TUBE SCH (08:00)
[2017-06-29] MEDS ORDERED: NAPROXEN 250 MG TAB PEG/G-TUBE SCH (08:00)
[2017-06-29] MEDS ORDERED: [UNRECOGNIZED DRUG - OTHER] PEG/G-TUBE SCH (08:00)
[2017-06-29] MEDS: carBAMazepine 200 MG TAB PEG/G-TUBE SCH ×2 (09:16→15:32)
[2017-06-29] MEDS: BACLOFEN 10 MG TAB PEG/G-TUBE SCH ×2 (09:16→15:32)
[2017-06-29] MEDS ORDERED: POLYETHYLENE GLYCOL 3350 17 GM POWD.PACK PO SCH (09:50)
[2017-06-29 15:07] VITALS: BP 114/71; TEMP 97.5
--- NOTE | 2017-06-29 15:23 | P.CNPUL ---
History of Present Illness Consult date: 06/29/17 Reason for consult: dyspnea, cough Chief complaint: Shortness of breath and cough History of present illness: This patient is a 37-year-old female with a history of cerebral palsy, mental retardation. She is nonverbal. She has a PEG tube and trach., history of seizures is a quadriplegic. Patient transfers with a lift. She was brought in by her caregiver due to an abnormal change in sputum color and production from her trach tube. They report that she's had no fevers. They state that the sputum colors normally yellowish green and is changed to appear similar to her PEG tube feedings. They state they've also noticed that her breathing was somewhat labored. Patient states that she's had normal bowel movements and has been passing urine without difficulty. She's had no known fevers that they're aware of. She's had history of multiple infections and pneumonias. While in the hospital patient has been closely monitored and observed her respirator secretions are clear no excessive coughing has been noted patient has been tolerating to feed very well and has been changed to Jevity 1.5 from boost. Labs reviewed medications reviewed Review of Systems All systems: negative Past Medical History Past Medical History: Asthma, Musculoskeletal Disorder, Seizure Disorder Additional Past Medical History / Comment(s): Celebral palsy, mental retardation - non verbal, PEG tube, trach, seizures (last unknown), quadriplegic , non-ambulatory w/ wheelchair, transfers with lift - non-weight bearing, stool impactions, incontinent of urine and stool (wears depends). History of Any Multi-Drug Resistant Organisms: MRSA Date of last positivie culture/infection: 05/25/16 MDRO Source:: Abdomen\ MRSA in sputum Past Surgical History: Orthopedic Surgery Additional Past Surgical History / Comment(s): EGD, PEG tube, left hip bone removed, tracheostomy Past Anesthesia/Blood Transfusion Reactions: No Reported Reaction Past Psychological History: Unable to Obtain Smoking Status: Never smoker Past Alcohol Use History: None Reported Past Drug Use History: None Reported - Past Family History Mother Family Medical History: Unable to Obtain Additional Family Medical History / Comment(s): No history - at [facility]. Medications and Allergies Home Medications Medication Instructions Recorded Confirmed Type Albuterol Nebulized [Ventolin 2.5 mg INHALATION RT-Q4H 06/06/16 06/28/17 History Nebulized] Baclofen [Lioresal] 20 mg PEG/G-TUBE TID@0800,1600,209906/06/16 06/28/17 History Diazepam [Diastat] 20 mg RECTAL Q5M PRN 06/06/16 06/28/17 History Montelukast Sodium [Singulair] 10 mg PEG/G-TUBE HS@209906/06/16 06/28/17 History levETIRAcetam 1,000 mg PEG/G-TUBE BID@0800,209906/06/16 06/28/17 History Bisacodyl [Dulcolax] 10 mg RECTAL DAILY PRN 11/30/16 06/28/17 History Budesonide [Pulmicort] 0.5 mg INHALATION RT-BID@0800,209911/30/16 06/28/17 History Chlorhexidine Gluconate [Peridex] 1 applic MUCOUS MEM BID@0800,209911/30/1609/09 History Nystatin 100,000 Unit/gm Powd 1 applic TOPICAL BID@0800,209911/30/16 06/28/17 History [Mycostatin Powder] Polyethylene Glycol 3350 [Miralax] 9 gm PEG/G-TUBE DAILY@0800 11/30/16 06/28/17 History Naproxen 375 mg PEG/G-TUBE DAILY@0800 01/03/17 06/28/17 History carBAMazepine [carBAMazepine Susp] 400 mg PEG/G-TUBE 01/03/17 06/28/17 History TID@0800,1600,2100 Acetaminophen Oral Susp [Tylenol] 320 - 960 mg PEG/G-TUBE Q4H PRN 05/07/1706/28 History Metoprolol Tartrate [Lopressor] 25 mg PEG/G-TUBE BID@0800,209905/07/17 History MORPHINE ORAL MANOHAR 2mg/mL [Morphine 20 mg PO Q6HR PRN 06/28/17 06/28/17 History Oral Soln 2 MG/ML] Triamcinolone 0.1% Cream [Kenalog] 1 applicatio TOPICAL BID@0800,209906/28/17 06/28/17 History Allergies Allergy/AdvReac Type Severity Reaction Status Date / Time levofloxacin [From Levaquin] Allergy Severe Seizure Verified 06/28/17 21:10 Physical Exam Vitals: Vital Signs Temp Pulse Pulse Resp BP BP Pulse Ox 06/29/17 15:00 97.5 F L 75 24 114/71 99 06/29/17 12:30 84 06/29/17 12:19 84 06/29/17 08:49 85 06/29/17 08:37 82 06/29/17 07:00 97.4 F L 82 24 125/43 96 06/29/17 03:53 76 06/29/17 03:43 80 06/29/17 02:37 98.4 F 24 111/64 100 06/29/17 01:33 80 18 120/58 97 06/29/17 00:42 99.1 F 82 18 102/66 100 06/28/17 23:16 85 18 103/60 99 06/28/17 22:12 82 18 111/55 98 06/28/17 20:23 89 18 101/55 97 06/28/17 19:41 98.9 F 87 18 100/54 100 Intake and Output 06/29/17 06/29/17 06/29/17 06:59 14:59 22:59 Intake Total 0 60 Balance 0 60 Intake: Oral 0 Tube Feeding 60 Other: Voiding Method Diaper Diaper Incontinent Incontinent # Voids 1 Weight 40.37 kg 40.37 kg 37-year-old female. Patient is nonverbal and unresponsive. History of cerebral palsy. Limitations: language barrier, physical limitation General appearance: alert, in no apparent distress Head exam: Present: atraumatic, normocephalic, normal inspection Eye exam: Present: normal appearance, PERRL, EOMI. Absent: scleral icterus, conjunctival injection, periorbital swelling ENT exam: Present: normal exam, mucous membranes moist, other (Tracheostomy tube noted. No significant sputum production noted at this site at this time.) Neck exam: Present: normal inspection. Absent: tenderness, meningismus, lymphadenopathy Respiratory exam: Present: Bilateral good air entry is present without any raise rhonchi or rub Cardiovascular Exam: Present: regular rate, normal rhythm, normal heart sounds. Absent: systolic murmur, diastolic murmur, rubs, gallop, clicks GI/Abdominal exam: Present: soft, normal bowel sounds. Absent: distended, tenderness, guarding, rebound, rigid Extremities exam: Present: normal inspection, full ROM, normal capillary refill. Absent: tenderness, pedal edema, joint swelling, calf tenderness Back exam: Present: normal inspection Neurological exam: Present: Awake unable to evaluate given significant neurological issues and significant quadriplegia with cerebral palsy Skin exam: Present: warm, dry, intact, normal color. Absent: rash Results - Laboratory Findings CBC and BMP: 06/28/17 22:11 06/28/17 22:51 PT/INR, D-dimer PT 11.2 sec (9.0-12.0) 06/28/17 22:51 INR 1.2 (<1.2) H 06/28/17 22:51 Abnormal lab findings: Abnormal Labs 06/28/17 06/28/17 06/28/17 21:18 22:51 22:51 INR 1.2 H Creatinine 0.30 L Urine Appearance Cloudy H Urine Protein 1+ H Urine Ketones Trace H Ur Leukocyte Esterase Trace H Urine RBC 10 H Ur Squamous Epith Cells 12 H Urine Bacteria Occasional H Urine Mucus Many H - Diagnostic Findings Chest x-ray: report reviewed, image reviewed (Abdominal x-ray reviewed as well) Assessment and Plan Assessment: Episode of aspiration related to tube, no evidence of pneumonia or aspiration pneumonia chronic hypoxic respirator failure Chemical tracheobronchitis related to tube feed no evidence of aspiration noted with Jevity 1.5 Cerebral palsy Quadriparesis Plan: Aspiration precaution Patient has been monitor off of IV antibiotics continue supportive care Observe patient on alternative to feed If remains stable can be discharged home close monitoring and follow-up Time with Patient: Greater than 30
[2017-06-29 15:57] VITALS: PULSE 85
--- NOTE | 2017-06-29 16:45 | HP ---
HISTORY AND PHYSICAL HISTORY AND PHYSICAL AND DISCHARGE SUMMARY: DATE OF ADMISSION: 06/29/17. DATE OF DISCHARGE: 06/29/17. HISTORY OF PRESENTING COMPLAINT: This is a 37-year-old patient follows with visiting physician Dr. Casarez. The patient's legal guardian is Deana Beck and lives at [facility]. Chronic stable medical conditions include cerebral palsy with quadriplegia with contracted limbs, chronic tracheostomy and a PEG tube feeding. The patient is nonverbal. The patient is also chronically doubly incontinent and has diapers. The patient does not communicate. History is obtained from the ER. The patient is having secretions through the tracheostomy which looked like a feeding and she was brought in for possible aspiration. There was no fever. REVIEW OF SYSTEMS: Cannot be done. The patient is nonverbal. PAST MEDICAL HISTORY: Cerebral palsy, quadriplegia, doubly incontinent, seizures, asthma, tracheostomy, PEG tube feeding. PAST SURGICAL HISTORY: Left hip bone removed, tracheostomy, PEG tube. SOCIAL HISTORY: No history of smoking or alcohol. Lives at [facility]. Legal guardian is Deana Beck. ALLERGIES: To [facility]. HOME MEDICATIONS: 1. Keppra 1000 mg through PEG tube b.i.d. 2. Carbamazepine 400 mg through PEG tube b.i.d. 3. Kenalog 0.1% topical b.i.d. 4. MiraLAX 9 g per PEG tube daily. 5. Nystatin topical b.i.d. 6. Naproxen 375 through PEG tube daily. 7. Singulair 10 mg through PEG tube q.h.s. 8. Lopressor 25 through PEG tube b.i.d. 9. Morphine 20 mg q.6h p.r.n. 10.Diazepam 20 mg rectal q.5h p.r.n. 11.Peridex 1 application mucous membrane b.i.d. 12.Pulmicort 0.5 nebulizer b.i.d. 13.Dulcolax 10 mg rectal daily p.r.n. 14.Baclofen 20 mg through PEG tube t.i.d. 15.Ventolin 2.5 nebulizer q.4. 16.Tylenol through PEG tube q.4h p.r.n. EXAMINATION: On examination, vital signs on presentation: Temperature 98.9, pulse 87, respiratory 18, blood pressure 100/54, pulse ox 97% on 2 L trach collar. GENERAL APPEARANCE: Lying in bed, limbs are contracted. Awake, not really following commands. EYES: Pupils are normal. HEENT: External nose and ears normal. Oral cavity dry mucous membrane. NECK: Short, tracheostomy in place. Secretions are clear. JVD unable to assess. RESPIRATORY: Effort normal. Lungs decreased breath sounds. CARDIOVASCULAR: First and second sounds normal. No edema. ABDOMEN: Soft, nontender. PEG tube in place. LYMPHATIC: No lymph node palpable in neck or axillae. PSYCHIATRY: Unable to assess, patient nonverbal. NEUROLOGICAL: All 4 limbs are contracted. Sensation grossly preserved. INVESTIGATIONS: White count 5.2, hemoglobin 13.5, potassium 4, BUN 10, creatinine 0.30. Chest x-ray nonspecific. ASSESSMENT: 1. Possible aspiration of the PEG tube feeding, could be a small amount. The patient normally chemical pneumonitis, but that is not even present. The patient did well after he was suctioned out. 2. Chronic PEG tube feeding. 3. Chronic tracheostomy tube. 4. Intermittent asthma. 5. Seizure disorder. 6. Cerebral palsy causing quadriplegia. 7. Double incontinent. 8. Chronic medical debility. PLAN: Home medications are to continue. Consultations made to Dr. Joseph Christina from Pulmonary with whom I discussed. From his standpoint patient is stable. Patient can be discharged back. Patient's home medications are to be continued. Disposition to [facility]. On examination, as above. Follow up with Visiting Physician in 3 days. MMMARTINA / TANO: [phone] /
[2017-06-29] MEDS ORDERED: MONTELUKAST 10 MG TAB PEG/G-TUBE SCH (21:00)
== END 2017-06-29 19:34 | disposition home health service (06) | DRG 394 ==
LOC: EC 19:37 → 4MS4W 06-29 01:12
PROVIDERS: ADMIT Hospitalist; ATTEND Hospitalist
DX: K94.29 Other complications of gastrostomy (principal); J96.11 Chronic respiratory failure with hypoxia; J45.20 Mild intermittent asthma, uncomplicated; G40.909 Epilepsy, unspecified, not intractable, without status epilepticus; G80.9 Cerebral palsy, unspecified; F79 Unspecified intellectual disabilities; R32 Unspecified urinary incontinence; K59.00 Constipation, unspecified; Z79.899 Other long term (current) drug therapy; Z79.891 Long term (current) use of opiate analgesic; Z79.51 Long term (current) use of inhaled steroids; Z86.69 Personal history of other diseases of the nervous system and sense organs; Z88.1 Allergy status to other antibiotic agents
CPT/HCPCS: 36415; 51701; 71045; 74019; 80053; 81001; 83605; 83880; 85025; 85610; 85730; 87040; 87070; 87077; 87086; 87186; 87205; 93005; 94640; 96374; 99285